=== PATIENT | female | born 1975 | race African-American/Black ===

== ENCOUNTER 2016-09-18 22:56 | Emergency (ER) | payer SELFPAY ==
[~2016-09-18] VITALS: Ht 165.1 cm; Wt 86.0 kg
[~2016-09-18 22:56] MED LIST: AUGM875T PO; BENZ100 PO; COLA100C PO; FERR324T4 PO; LACT PO; MEDR4PAK3 PO
[2016-09-18 23:00] VITALS: BP_SYST 192; BP_SYST 205; BP_DIAS 113; BP_DIAS 115; PULSE 102; RESP 16; TEMP 98.8; O2SAT 100
[2016-09-18 23:29] LABS: MEAN CORPUSCULAR HGB CONC 27.8 % (32.0-36.0)
[2016-09-18] MEDS ORDERED: SODIUM CHLORIDE 0.9% FLUSH 10 ML FLUSH IV FLUSH PRN (23:30)
[2016-09-18] MEDS ORDERED: ONDANSETRON HCL 4 MG/2 ML VIAL IVP ONE (23:30)
[2016-09-18] MEDS: SODIUM CHLOR 0.9% 1000 ML INJ 1,000 ML IV SCH (23:35)
[2016-09-19 00:11] LABS: AUTOMATED NEUTROPHIL # 5.3 TH/MM3 (1.8-7.7); BACTERIA, URINE OCC /hpf; BASOPHIL % 0.4 % (0.0-2.0); BLOOD, URINE NEG (NEG); EOSINOPHIL # 0.1 TH/MM3 (0-0.4); EOSINOPHIL % 0.9 % (0.0-4.0); GLUCOSE,URINE NEG (NEG); HEMATOCRIT 25.8 % (35.0-46.0); HEMO FLAGS DIFF FINAL; KETONE, URINE NEG (NEG); LYMPH % 23.6 % (9.0-44.0); LYMPHOCYTE # 1.9 TH/MM3 (1.0-4.8); MEAN CORPUSCULAR HEMOGLOBIN 16.1 PG (27.0-34.0); MONO % 8.4 % (0.0-8.0); MUCUS URINE FEW /lpf (OCC); NEUT % 66.7 % (16.0-70.0); NITRITE,URINE NEG (NEG); PLATELET COUNT 198 TH/MM3 (150-450); RED BLOOD COUNT 4.45 MIL/MM3 (4.00-5.30); RED CELL DISTRIBUTION WIDTH 20.8 % (11.6-17.2); SQUAMOUS EPITHELIAL CELL URINE 5 /hpf (0-5); URINE COLOR YELLOW (YELLW/STRAW); WHITE BLOOD COUNT 7.9 TH/MM3 (4.0-11.0)
[2016-09-19 00:12] LABS: COMMENT (UR) CULT NOT INDICATED; CULTURE IF INDICATED CULT NOT INDICATED
[2016-09-19 00:22] LABS: APTT (PATIENT) 25.8 SEC (24.3-30.1); PROTHROMBIN TIME - PATIENT 10.7 SEC (9.8-11.6)
[2016-09-19 00:38] LABS: ALT (GPT) 19 U/L (10-53); ANION GAP 9 MEQ/L (5-15); AST (GOT) 28 U/L (15-37); BICARBONATE 20.8 MEQ/L (21.0-32.0); BLOOD UREA NITROGEN 11 MG/DL (7-18); CHLORIDE 110 MEQ/L (98-107); GLOMERULAR FILTRATION RATE 96 ML/MIN (>89); POTASSIUM 3.5 MEQ/L (3.5-5.1); SODIUM (NA) 140 MEQ/L (136-145)
[2016-09-19 00:41] LABS: ALKALINE PHOSPHATASE 70 U/L (45-117); BETA HCG QUANT LESS THAN 1 MIU/ML (0-5); TOTAL BILIRUBIN ADULT 0.5 MG/DL (0.2-1.0)
[2016-09-19] MEDS ORDERED: IOHEXOL 350 MG/ML 10 ML VIAL (for RAD DIAG) IV ONE (00:56)
[2016-09-19] MEDS ORDERED: KETOROLAC TROMETHAMINE 30 MG/ML (IVP) VIAL IV PUSH ONE (01:15)
[2016-09-19] MEDS: SODIUM CHLOR 0.9% 1000 ML INJ 1,000 ML IV SCH (01:17)
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
--- NOTE | 2016-09-19 01:17 | RADRPT ---
EXAM DATE/TIME: 09/19/2016 00:54 [facility] COMPARISON: CT ABDOMEN & PELVIS W/O CONTRAST, November 19, 2010, 17:28. INDICATIONS : Mid-lower abdominal pain with vomiting. IV CONTRAST: 80 cc Omnipaque 350 (iohexol) IV ORAL CONTRAST: No oral contrast ingested. RADIATION DOSE: 12.75 CTDIvol (mGy) MEDICAL HISTORY : Hypertension. Ovarian cysts. SURGICAL HISTORY : section. ENCOUNTER: Initial ACUITY: 1 day PAIN SCALE: 5/10 LOCATION: lower quadrant TECHNIQUE: Volumetric scanning of the abdomen and pelvis was performed. Using automated exposure control and ad justment of the mA and/or kV according to patient size, radiation dose was kept as low as reasonably achievable to obtain optimal diagnostic quality images. DICOM format image data is available electro nically for review and comparison. FINDINGS: LOWER LUNGS: The visualized lower lungs are clear. LIVER: Homogeneous density without lesion. There is no dilation of the biliary tree. No calcified gallston es. SPLEEN: Normal size without lesion. PANCREAS: Within normal limits. KIDNEYS: Normal in size and shape. There is no mass, stone or hydronephrosis on the left. Complex fatty lesio n lower pole right kidney measures 4.2 x 3.8 cm and has increased in size from previous study. ADRENAL GLANDS: Within normal limits. VASCULAR: There is no aortic aneurysm. BOWEL/MESENTERY: The stomach, small bowel, and colon demonstrate no acute abnormality. There is no free intraperitone al air or fluid. ABDOMINAL WALL: Within normal limits. RETROPERITONEUM: There is no lymphadenopathy. BLADDER: Borderline wall thickening without mass. REPRODUCTIVE: Calcified leiomyoma in the fundus. Endometrium appears somewhat prominent likely related to phase of menstrual cycle. INGUINAL: There is no lymphadenopathy or hernia. MUSCULOSKELETAL: Within normal limits for patient age. CONCLUSION: 1. Complex fatty lesion lower pole right kidney measures 4.2 x 2.8 cm which was seen on previous stud y and has increased in size. 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 2. Calcified leiomyoma in the uterus and prominence of the endometrium, likely normal phase of menstr ual cycle. 3. Borderline wall thickening within the urinary bladder. Oscar Lindsay MD on September 19, 2016 at 1:11 Board Certified Radiologist. This report was verified electronically.
[2016-09-19] MEDS ORDERED: FERR324T8 PO (01:59)
[2016-09-19 04:20] LABS: CHLAMYDIA PCR NOT DETECTED (NOT DETECT); NEISSERIA PCR NOT DETECTED (NOT DETECT)
== END 2016-09-19 02:48 | disposition home or self-care (01) ==
LOC: NEPE 22:56
DX: D64.9 Anemia, unspecified (principal); D25.9 Leiomyoma of uterus, unspecified; I10 Essential (primary) hypertension
CPT/HCPCS: 74177; 80053; 81001; 83690; 84702; 85025; 85610; 85730; 87210; 87491; 87591; 96374; 96375; 99285; J1885; J2405; J7030; Q9967

== ENCOUNTER 2017-01-22 10:24 | Emergency (ER) | payer SELFPAY ==
[~2017-01-22] VITALS: Ht 165.1 cm; Wt 85.0 kg
[~2017-01-22 10:24] MED LIST changes: -AUGM875T PO; -BENZ100 PO; -COLA100C PO; -FERR324T4 PO; +FERR324T8 PO; -LACT PO; -MEDR4PAK3 PO
[2017-01-22 10:26] VITALS: BP 190/105; PULSE 89; RESP 14; TEMP 98.1; O2SAT 100
[2017-01-22] MEDS ORDERED: CLIN300C5 PO (11:58)
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
== END 2017-01-22 17:13 | disposition home or self-care (01) ==
LOC: NEPD 10:24
DX: K08.89 Other specified disorders of teeth and supporting structures (principal); K02.9 Dental caries, unspecified; F17.210 Nicotine dependence, cigarettes, uncomplicated
CPT/HCPCS: 99283

== ENCOUNTER 2017-02-01 22:44 | Emergency (ER) | payer SELFPAY ==
[~2017-02-01 22:44] MED LIST changes: +CLIN300C5 PO; -FERR324T8 PO
[2017-02-01 22:46] VITALS: BP 222/109; PULSE 94; RESP 16; TEMP 98.7; O2SAT 98
[2017-02-01 23:04] VITALS: BP 191/115; PULSE 86; RESP 18; O2SAT 98
[2017-02-01] MEDS ORDERED: LIDOCAINE HCL 1% 50 ML VIAL INFIL ONE (23:15)
[2017-02-01] MEDS ORDERED: SODIUM CHLORIDE 0.9% FLUSH 10 ML FLUSH IV FLUSH PRN (23:15)
[2017-02-01] MEDS ORDERED: KETOROLAC TROMETHAMINE 30 MG/ML (IVP) VIAL IV PUSH ONE (23:15)
[2017-02-01] MEDS ORDERED: METOCLOPRAMIDE HCL 10 MG/2 ML VIAL IV PUSH ONE (23:15)
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
[2017-02-01 23:32] VITALS: BP 175/99; PULSE 89; RESP 18; O2SAT 99
[2017-02-01 23:50] LABS: BICARBONATE 23.7 MEQ/L (21.0-32.0); POTASSIUM 3.8 MEQ/L (3.5-5.1)
[2017-02-02] VITALS: BP 161/85; PULSE 73; RESP 18; O2SAT 99
[2017-02-02 00:13] LABS: AUTOMATED NEUTROPHIL # 3.6 TH/MM3 (1.8-7.7); BASOPHIL % 0.4 % (0.0-2.0); EOSINOPHIL # 0.1 TH/MM3 (0-0.4); EOSINOPHIL % 1.6 % (0.0-4.0); HEMATOCRIT 27.6 % (35.0-46.0); HEMO FLAGS DIFF FINAL; LYMPH % 27.8 % (9.0-44.0); LYMPHOCYTE # 1.6 TH/MM3 (1.0-4.8); MEAN CELL VOLUME 58.3 FL (80.0-100.0); MEAN CORPUSCULAR HEMOGLOBIN 17.3 PG (27.0-34.0); MONO % 6.4 % (0.0-8.0); NEUT % 63.8 % (16.0-70.0); PLATELET COUNT 178 TH/MM3 (150-450); RED BLOOD COUNT 4.73 MIL/MM3 (4.00-5.30); RED CELL DISTRIBUTION WIDTH 21.8 % (11.6-17.2); WHITE BLOOD COUNT 5.7 TH/MM3 (4.0-11.0)
[2017-02-02 00:15] LABS: MEAN CORPUSCULAR HGB CONC 29.6 % (32.0-36.0)
[2017-02-02] MEDS ORDERED: PENI500T PO (00:25)
[2017-02-02] MEDS ORDERED: PENICILLIN V POTASSIUM 500 MG TAB PO ONE (00:30)
== END 2017-02-02 00:28 | disposition home or self-care (01) ==
LOC: NEPE 22:44
DX: K08.89 Other specified disorders of teeth and supporting structures (principal); D64.9 Anemia, unspecified; I10 Essential (primary) hypertension; E04.9 Nontoxic goiter, unspecified; Z72.0 Tobacco use
CPT/HCPCS: 64400; 80048; 85025; 96374; 96375; 99284; J1885; J2765

== ENCOUNTER 2017-05-21 09:21 | Emergency (ER) | payer MEDICAID ==
[~2017-05-21] VITALS: Ht 165.1 cm; Wt 83.0 kg
[~2017-05-21 09:21] MED LIST changes: -CLIN300C5 PO; +PENI500T PO
[2017-05-21 09:40] VITALS: BP 180/85; PULSE 83; RESP 16; TEMP 97.9; O2SAT 100
[2017-05-21] MEDS ORDERED: ACYCLOVIR 200 MG CAP PO STA (10:56)
[2017-05-21] MEDS ORDERED: predniSONE 20 MG TAB PO ONE (11:00)
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
[2017-05-21] MEDS ORDERED: ACYC400T PO (11:39)
[2017-05-21] MEDS ORDERED: ARTIDRO LEFT EYE (11:39)
[2017-05-21] MEDS ORDERED: PRED20 PO (11:39)
== END 2017-05-21 12:02 | disposition home or self-care (01) ==
LOC: NEPC 09:21
DX: G51.0 Bell's palsy (principal); I10 Essential (primary) hypertension; Z72.0 Tobacco use
CPT/HCPCS: 99283; J7512

== ENCOUNTER 2017-12-20 16:03 | Inpatient (IN) ==
--- NOTE | 2017-12-20 16:50 | ED ---
HPI General Chief complaint: Chest Pain Stated complaint: chest pain/sob Time Seen by Provider: 12/20/17 16:41 Source: patient Mode of arrival: ambulatory Limitations: no limitations History of Present Illness HPI narrative: 42-year-old female with no significant medical history presents emergency department for evaluation of an epigastric chest pain persisting times the last 3 days. Patient states it is worse with activity. She has been mildly nauseous and short of breath. Patient states she feels very tired. Patient denies chance of . States her last menstrual cycle just ended. She denies any vaginal bleeding or discharge. She does report 1 dark stool about 3 days ago. She is not on any anticoagulation however she does take about 3 ibuprofen the day when she is on her menstrual cycle. She has no other symptoms to report at this time. Related Data Home Medications Medication Instructions Recorded Confirmed No Known Home Medications 12/20/17 12/20/17 Allergies Allergy/AdvReac Type Severity Reaction Status Date / Time No Known Allergies Allergy Verified 12/20/17 16:33 Review of Systems ROS: all other systems reviewed are negative PMFSH History History Provided By: Patient Medical History Medical History Fibroid uterus (Acute) Hypertension (Acute) Pre-eclampsia affecting childbirth (Acute) Severe anemia (Acute) Transfusion history (Acute) Surgical History Surgical History History of section (Acute) Social History Social History Substance History: No History of Abuse Second Hand Smoke Exposure: Yes Smoking Status: Current every day smoker Tobacco Type: Cigarettes How Often Do You Have a Drink Containing Alcohol: 2 to 4 times a month Recent Travel in [facility] within the Last 8 Weeks: No Recent Out of Country Travel within the Last 8 Weeks: No Exam Narrative Exam Narrative: GENERAL: Well-nourished female patient, ambulatory and in no acute distress SKIN: Focused skin assessment warm/dry. HEAD: Atraumatic. Normocephalic. EYES: Pupils equal and round. No scleral icterus. No injection or drainage. ENT: No nasal bleeding or discharge. Mucous membranes pink and moist. NECK: Trachea midline. No JVD. CARDIOVASCULAR: Regular rate and rhythm. No murmur appreciated. RESPIRATORY: No accessory muscle use. Clear to auscultation. Breath sounds equal bilaterally. GASTROINTESTINAL: Abdomen soft, nondistended. Epigastric and left upper quadrant tenderness to palpation. No guarding. No rebound tenderness. Hepatic and splenic margins not palpable. RECTAL EXAM: Large external hemorrhoids, tender, stool is brown. MUSCULOSKELETAL: No obvious deformities. No clubbing. No cyanosis. No edema. NEUROLOGICAL: Awake and alert. No obvious cranial nerve deficits. Motor grossly within normal limits. Normal speech. PSYCHIATRIC: Appropriate mood and affect; insight and judgment normal. Procedures Hemaprompt Stool Procedural Steps Taken: specimen placed in appropriate test area Hemaprompt Stool Result: positive Course Initial Documented Vital Signs Temperature 98.5 F 12/20/17 16:20 Pulse Rate 87 12/20/17 16:20 Respiratory Rate 16 12/20/17 16:20 Blood Pressure 188/107 H 12/20/17 16:20 Pulse Oximetry 100 12/20/17 16:20 Last Documented Vital Signs Temperature 98.1 F 12/21/17 03:48 Pulse Rate 72 12/21/17 04:00 Respiratory Rate 18 12/21/17 03:48 Blood Pressure 159/86 H 12/21/17 03:48 Pulse Oximetry 99 12/21/17 03:48 Medical Decision Making BHAVESH Attestation BHAVESH supervised visit: Yes Attestation: I, Dr. Mckeon, have reviewed the advance practice practitioner' s documentation and am in agreement, met with the patient face to face, made the diagnosis, and the medical decision making was done by me. *My assessment and Findings: Superior pubic tenderness to palpation, elevated BP. MDM Narrative Medical decision making narrative: 42-year-old female presents emergency department for evaluation. Patient appears well. She is hypertensive here in the emergency department. She does have some epigastric and left upper quadrant tenderness to palpation. Lab work is complete and hemoglobin is 6.9. Hemoccult for stool is positive. 2 units of packed red blood cells are ordered. I discussed the patient my attending physician. She will be admitted following CT imaging of her abdomen and pelvis to further evaluate the abdominal pain. Plan is discussed with the patient. She is in agreement with this plan of care.. Medical Screen Exam Complete: Yes Emergency Medical Condition: Yes Differential Diagnosis Differential Diagnosis: Gastritis versus GI bleed upper versus lower versus electrolyte abnormality versus ACS versus cholecystitis versus pancreatitis Medical Records Medical records reviewed: Yes I reviewed the patient's medical records. Lab Data Lab results reviewed: Yes I reviewed the patient's lab results. Result diagrams: 12/21/17 04:23 12/21/17 04:23 POC Results POC Urine Results Negative Lab Results 12/20/17 12/20/17 12/20/17 Range/Units 17:00 17:00 17:00 WBC 4.8 (4.0-11.0) th/mm3 RBC 4.30 (4.00-5.30) mil/mm3 Hgb 6.9 L* (11.6-15.3) gm/dL Hct 24.6 L (35.0-46.0) % MCV 57.2 L (80.0-100.0) fL MCH 15.9 L (27.0-34.0) pg MCHC 27.9 L (32.0-36.0) % RDW 21.3 H (11.6-17.2) % Plt Count 237 (150-450) th/mm3 MPV 8.5 (7.0-11.0) fL Prelim Diff (Auto) Slide review pending Neut % (Auto) 56.8 (16.0-70.0) % Lymph % (Auto) 32.3 (9.0-44.0) % Wilson % (Auto) 8.1 H (0.0-8.0) % Eos % (Auto) 2.3 (0.0-4.0) % Baso % (Auto) 0.5 (0.0-2.0) % Neut # (Auto) 2.7 (1.8-7.7) th/mm3 Lymph # (Auto) 1.6 (1.0-4.8) th/mm3 Wilson # (Auto) 0.4 (0.0-0.9) th/mm3 Eos # (Auto) 0.1 (0.0-0.4) th/mm3 Baso # (Auto) 0.0 (0.0-0.2) th/mm3 WBC Differential . Diff Scan Auto diff confirmed Differential Comment . Platelet Estimate Normal (Normal) Platelet Morphology Normal (Normal) Tear Drop Cells 1+ H (None) Ovalocytes 3+ H (None) PT 9.9 (9.8-11.6) sec INR 1.0 Ratio APTT 23.8 L (24.3-30.1) sec Sodium 141 (136-145) meq/L Potassium 3.8 (3.5-5.1) meq/L Chloride 112 H (98-107) meq/L Carbon Dioxide 21.0 (21.0-32.0) meq/L Anion Gap 8 (5-15) meq/L BUN 9 (7-18) mg/dL Creatinine 0.87 (0.50-1.00) mg/dL Estimated GFR 86 L (>89) mL/min Random Glucose 87 (74-106) mg/dL Calcium 8.7 (8.5-10.1) mg/dL Iron (50-170) mcg/dL TIBC (250-450) mcg/dL % Saturation (20-50) % Ferritin (8-252) ng/mL Total Bilirubin 0.4 (0.2-1.0) mg/dL AST 19 (15-37) U/L ALT 16 (10-53) U/L Alkaline Phosphatase 94 (45-117) U/L Total Creatine Kinase 90 (26-192) U/L Troponin I 0.02 (0.02-0.05) ng/mL Total Protein 8.1 (6.4-8.2) g/dL Albumin 3.6 (3.4-5.0) g/dL Lipase 169 (73-393) U/L Urine Color (Yellw/Straw) Urine Clarity (Clear) Urine pH (5.0-8.5) Ur Specific [place] (1.002-1.035) Urine Protein (Neg-Trace) mg/dL Urine Glucose (UA) (Negative) mg/dL Urine Ketones (Negative) mg/dL Urine Occult Blood (Negative) Urine Nitrate (Negative) Urine Bilirubin (Negative) Urine Urobilinogen (Less than 2) mg/dL Ur Leukocyte Esterase (Negative) Urine RBC (0-3) /hpf Urine WBC (0-5) /hpf Ur Squamous Epith Cells (0-5) /hpf Urine Bacteria (None) /hpf Micro UA Comment Ur Microscopic Review Urine Culture Comments Blood Type Antibody Screen MTS Gel Crossmatch 12/20/17 12/20/17 12/20/17 Range/Units 17:00 17:00 17:00 WBC (4.0-11.0) th/mm3 RBC (4.00-5.30) mil/mm3 Hgb (11.6-15.3) gm/dL Hct (35.0-46.0) % MCV (80.0-100.0) fL MCH (27.0-34.0) pg MCHC (32.0-36.0) % RDW (11.6-17.2) % Plt Count (150-450) th/mm3 MPV (7.0-11.0) fL Prelim Diff (Auto) Neut % (Auto) (16.0-70.0) % Lymph % (Auto) (9.0-44.0) % Wilson % (Auto) (0.0-8.0) % Eos % (Auto) (0.0-4.0) % Baso % (Auto) (0.0-2.0) % Neut # (Auto) (1.8-7.7) th/mm3 Lymph # (Auto) (1.0-4.8) th/mm3 Wilson # (Auto) (0.0-0.9) th/mm3 Eos # (Auto) (0.0-0.4) th/mm3 Baso # (Auto) (0.0-0.2) th/mm3 WBC Differential Diff Scan Differential Comment Platelet Estimate (Normal) Platelet Morphology (Normal) Tear Drop Cells (None) Ovalocytes (None) PT (9.8-11.6) sec INR Ratio APTT (24.3-30.1) sec Sodium (136-145) meq/L Potassium (3.5-5.1) meq/L Chloride (98-107) meq/L Carbon Dioxide (21.0-32.0) meq/L Anion Gap (5-15) meq/L BUN (7-18) mg/dL Creatinine (0.50-1.00) mg/dL Estimated GFR (>89) mL/min Random Glucose (74-106) mg/dL Calcium (8.5-10.1) mg/dL Iron 16 L (50-170) mcg/dL TIBC 484 H (250-450) mcg/dL % Saturation 3.3 L (20-50) % Ferritin 2 L (8-252) ng/mL Total Bilirubin (0.2-1.0) mg/dL AST (15-37) U/L ALT (10-53) U/L Alkaline Phosphatase (45-117) U/L Total Creatine Kinase (26-192) U/L Troponin I 0.02 (0.02-0.05) ng/mL Total Protein (6.4-8.2) g/dL Albumin (3.4-5.0) g/dL Lipase (73-393) U/L Urine Color Yellow (Yellw/Straw) Urine Clarity Hazy H (Clear) Urine pH 5.0 (5.0-8.5) Ur Specific [place] 1.019 (1.002-1.035) Urine Protein Negative (Neg-Trace) mg/dL Urine Glucose (UA) Negative (Negative) mg/dL Urine Ketones Negative (Negative) mg/dL Urine Occult Blood Negative (Negative) Urine Nitrate Negative (Negative) Urine Bilirubin Negative (Negative) Urine Urobilinogen 2.0 H (Less than 2) mg/dL Ur Leukocyte Esterase Negative (Negative) Urine RBC Less than 1 (0-3) /hpf Urine WBC 7 H (0-5) /hpf Ur Squamous Epith Cells 8 (0-5) /hpf Urine Bacteria Rare H (None) /hpf Micro UA Comment Culture not ind Ur Microscopic Review Not Reportable Urine Culture Comments Culture not ind Blood Type Antibody Screen MTS Gel Crossmatch 12/20/17 12/21/17 12/21/17 Range/Units 18:05 01:10 04:23 WBC (4.0-11.0) th/mm3 RBC (4.00-5.30) mil/mm3 Hgb (11.6-15.3) gm/dL Hct (35.0-46.0) % MCV (80.0-100.0) fL MCH (27.0-34.0) pg MCHC (32.0-36.0) % RDW (11.6-17.2) % Plt Count (150-450) th/mm3 MPV (7.0-11.0) fL Prelim Diff (Auto) Neut % (Auto) (16.0-70.0) % Lymph % (Auto) (9.0-44.0) % Wilson % (Auto) (0.0-8.0) % Eos % (Auto) (0.0-4.0) % Baso % (Auto) (0.0-2.0) % Neut # (Auto) (1.8-7.7) th/mm3 Lymph # (Auto) (1.0-4.8) th/mm3 Wilson # (Auto) (0.0-0.9) th/mm3 Eos # (Auto) (0.0-0.4) th/mm3 Baso # (Auto) (0.0-0.2) th/mm3 WBC Differential Diff Scan Differential Comment Platelet Estimate (Normal) Platelet Morphology (Normal) Tear Drop Cells (None) Ovalocytes (None) PT (9.8-11.6) sec INR Ratio APTT (24.3-30.1) sec Sodium 141 (136-145) meq/L Potassium 3.6 (3.5-5.1) meq/L Chloride 111 H (98-107) meq/L Carbon Dioxide 20.5 L (21.0-32.0) meq/L Anion Gap 10 (5-15) meq/L BUN 7 (7-18) mg/dL Creatinine 0.78 (0.50-1.00) mg/dL Estimated GFR Greater than 89 (>89) mL/min Random Glucose 84 (74-106) mg/dL Calcium 8.5 (8.5-10.1) mg/dL Iron (50-170) mcg/dL TIBC (250-450) mcg/dL % Saturation (20-50) % Ferritin (8-252) ng/mL Total Bilirubin 0.7 (0.2-1.0) mg/dL AST 17 (15-37) U/L ALT 14 (10-53) U/L Alkaline Phosphatase 80 (45-117) U/L Total Creatine Kinase (26-192) U/L Troponin I 0.03 Less than 0.02 L (0.02-0.05) ng/mL Total Protein 7.6 (6.4-8.2) g/dL Albumin 3.4 (3.4-5.0) g/dL Lipase (73-393) U/L Urine Color (Yellw/Straw) Urine Clarity (Clear) Urine pH (5.0-8.5) Ur Specific [place] (1.002-1.035) Urine Protein (Neg-Trace) mg/dL Urine Glucose (UA) (Negative) mg/dL Urine Ketones (Negative) mg/dL Urine Occult Blood (Negative) Urine Nitrate (Negative) Urine Bilirubin (Negative) Urine Urobilinogen (Less than 2) mg/dL Ur Leukocyte Esterase (Negative) Urine RBC (0-3) /hpf Urine WBC (0-5) /hpf Ur Squamous Epith Cells (0-5) /hpf Urine Bacteria (None) /hpf Micro UA Comment Ur Microscopic Review Urine Culture Comments Blood Type O Positive Antibody Screen Negative MTS Gel Crossmatch See Detail 12/21/17 Range/Units 04:23 WBC 7.3 D (4.0-11.0) th/mm3 RBC 4.72 (4.00-5.30) mil/mm3 Hgb 8.6 L (11.6-15.3) gm/dL Hct 29.2 L (35.0-46.0) % MCV 61.9 L D (80.0-100.0) fL MCH 18.1 L (27.0-34.0) pg MCHC 29.3 L (32.0-36.0) % RDW 24.9 H D (11.6-17.2) % Plt Count 207 (150-450) th/mm3 MPV 9.0 (7.0-11.0) fL Prelim Diff (Auto) Neut % (Auto) 72.0 H (16.0-70.0) % Lymph % (Auto) 19.0 (9.0-44.0) % Wilson % (Auto) 6.7 (0.0-8.0) % Eos % (Auto) 2.0 (0.0-4.0) % Baso % (Auto) 0.3 (0.0-2.0) % Neut # (Auto) 5.2 (1.8-7.7) th/mm3 Lymph # (Auto) 1.4 (1.0-4.8) th/mm3 Wilson # (Auto) 0.5 (0.0-0.9) th/mm3 Eos # (Auto) 0.1 (0.0-0.4) th/mm3 Baso # (Auto) 0.0 (0.0-0.2) th/mm3 WBC Differential . Diff Scan Differential Comment Auto diff final Platelet Estimate (Normal) Platelet Morphology (Normal) Tear Drop Cells (None) Ovalocytes (None) PT (9.8-11.6) sec INR Ratio APTT (24.3-30.1) sec Sodium (136-145) meq/L Potassium (3.5-5.1) meq/L Chloride (98-107) meq/L Carbon Dioxide (21.0-32.0) meq/L Anion Gap (5-15) meq/L BUN (7-18) mg/dL Creatinine (0.50-1.00) mg/dL Estimated GFR (>89) mL/min Random Glucose (74-106) mg/dL Calcium (8.5-10.1) mg/dL Iron (50-170) mcg/dL TIBC (250-450) mcg/dL % Saturation (20-50) % Ferritin (8-252) ng/mL Total Bilirubin (0.2-1.0) mg/dL AST (15-37) U/L ALT (10-53) U/L Alkaline Phosphatase (45-117) U/L Total Creatine Kinase (26-192) U/L Troponin I (0.02-0.05) ng/mL Total Protein (6.4-8.2) g/dL Albumin (3.4-5.0) g/dL Lipase (73-393) U/L Urine Color (Yellw/Straw) Urine Clarity (Clear) Urine pH (5.0-8.5) Ur Specific [place] (1.002-1.035) Urine Protein (Neg-Trace) mg/dL Urine Glucose (UA) (Negative) mg/dL Urine Ketones (Negative) mg/dL Urine Occult Blood (Negative) Urine Nitrate (Negative) Urine Bilirubin (Negative) Urine Urobilinogen (Less than 2) mg/dL Ur Leukocyte Esterase (Negative) Urine RBC (0-3) /hpf Urine WBC (0-5) /hpf Ur Squamous Epith Cells (0-5) /hpf Urine Bacteria (None) /hpf Micro UA Comment Ur Microscopic Review Urine Culture Comments Blood Type Antibody Screen MTS Gel Crossmatch Imaging Data Radiologist's impression: Chest X-Ray 12/20/17 16:48 CONCLUSION: No acute cardiopulmonary disease. Abdomen/Pelvis CT 12/20/17 16:49 CONCLUSION: 1. No obstruction or acute inflammatory changes are demonstrated. 2. Multiple cysts of the left ovary measuring up to 3.8 cm in size. Similar findings were seen on the prior studies. Low-grade cystic neoplasm would be in the differential. 3. Uterine fibroids are again noted. 4. 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 Discharge Plan Discharge Disposition Patient Disposition: 30 Still Patient Discharge Condition Condition: Stable Discharge Details Diagnosis: Atypical chest pain, Symptomatic anemia, Stool guaiac positive Physicians Team ED Provider: Mariusz Mckeon ED Midlevel Provider: Sharita Ingram Primary Care Provider: Primary Care Mecca,Hilda Attending Provider: Nkechi Marks Other Providers: Selwyn Barnes Status ED Status: Left Department Discharge Information Discharge Date/Time: 12/20/17 23:52
--- NOTE | 2017-12-20 17:11 | XR ---
EXAM DATE: 12/20/2017 4:48 PM EDT AGE/SEX: 42 years / Female INDICATIONS: Chest pain. Difficulty catching breath. CLINICAL DATA: This is the patient's initial encounter. Patient reports that signs and symptoms have been present for 3 days and indicates a pain score of 5/10. MEDICAL/SURGICAL HISTORY: Hypertension. None. COMPARISON: No prior exams available for comparison. FINDINGS: A single AP view of the chest demonstrates the lungs to be symmetrically aerated without evidence of mass, infiltrate or effusion. The cardiomediastinal contours are unremarkable. Osseous structures a re intact. CONCLUSION: No acute cardiopulmonary disease. Electronically signed by: Oscar Lindsay MD 12/20/2017 5:10 PM EDT
[2017-12-20 17:30] LABS: Baso % (Auto) 0.5 % (0.0-2.0); Eos # (Auto) 0.1 th/mm3 (0.0-0.4); Eos % (Auto) 2.3 % (0.0-4.0); Hematocrit 24.6 % (35.0-46.0); Lymph # (Auto) 1.6 th/mm3 (1.0-4.8); Lymph % (Auto) 32.3 % (9.0-44.0); Mean Corpuscular Hemoglobin 15.9 pg (27.0-34.0); Mean Corpuscular Volume 57.2 fL (80.0-100.0); Mean Platelet Volume 8.5 fL (7.0-11.0); Mono # (Auto) 0.4 th/mm3 (0.0-0.9); Mono % (Auto) 8.1 % (0.0-8.0); Neut # (Auto) 2.7 th/mm3 (1.8-7.7); Neut % (Auto) 56.8 % (16.0-70.0); Platelet Count 237 th/mm3 (150-450); Red Cell Distribution Width 21.3 % (11.6-17.2); White Blood Count 4.8 th/mm3 (4.0-11.0)
[2017-12-20 17:36] LABS: Bacteria,Urine Rare /hpf; Bilirubin,Urine Negative (Negative); Clarity,Urine Hazy (Clear); Color,Urine Yellow (Yellw/Straw); Glucose,Urine (UA) Negative (Negative); Leukocyte Esterase,Urine Negative (Negative); Nitrite,Urine Negative (Negative); Specific Gravity,Urine 1.019 (1.002-1.035); Squamous Epithelial Cell,Urine 8 /hpf (0-5)
[2017-12-20 17:37] LABS: Activated Partial Thrombo Time 23.8 sec (24.3-30.1); Prothrombin Time 9.9 sec (9.8-11.6)
[2017-12-20 17:40] LABS: Mean Corpuscular HGB Conc 27.9 % (32.0-36.0)
[2017-12-20 17:42] LABS: Hemoglobin 6.9 gm/dL (11.6-15.3)
[2017-12-20 17:48] LABS: Albumin 3.6 g/dL (3.4-5.0); Anion Gap 8 meq/L (5-15); Aspartate Aminotransferase 19 U/L (15-37); Blood Urea Nitrogen 9 mg/dL (7-18); Calcium 8.7 mg/dL (8.5-10.1); Chloride 112 meq/L (98-107); Glomerular Filtration Rate 86 mL/min (>89); Glucose,Random 87 mg/dL (74-106); Lipase 169 U/L (73-393); Potassium 3.8 meq/L (3.5-5.1); Sodium 141 meq/L (136-145)
[2017-12-20 17:49] LABS: Alanine Aminotransferase 16 U/L (10-53)
[2017-12-20 17:53] LABS: Alkaline Phosphatase 94 U/L (45-117); Total Protein 8.1 g/dL (6.4-8.2); Troponin I 0.02 ng/mL (0.02-0.05)
[2017-12-20 17:56] LABS: Creatine Kinase 90 U/L (26-192)
[2017-12-20] MEDS ORDERED: Sodium Chlor 0.9% Inj 250 ML IV.SIG SCH (18:00)
[2017-12-20 18:08] LABS: Ovalocytes 3+; Platelet Estimate Normal (Normal); Platelet Morphology Normal (Normal); Tear Drop Cells 1+
--- NOTE | 2017-12-20 19:41 | CT ---
EXAM DATE: 12/20/2017 5:56 PM EDT AGE/SEX: 42 years / Female INDICATIONS: Abdomen pain with nausea and vomiting. CLINICAL DATA: This is the patient's initial encounter. Patient reports that signs and symptoms have been present for 1 day and indicates a pain score of 6/10. MEDICAL/SURGICAL HISTORY: Hypertension. section. ORAL CONTRAST: No oral contrast ingested. RADIATION DOSE: 15.82 CTDI (mGy) COMPARISON: [facility] [place] ABDOMEN & PELVIS W CONTRAST, 09/19/2016. . TECHNIQUE: Multiple contiguous axial images were obtained through the abdomen and pelvis following b olus infusion of 95 ml Omnipaque 350 (iohexol) nonionic water-soluble contrast as a single exam dos e. No oral contrast ingested. Using automated exposure control and adjustment of the mA and/or kV ac cording to patient size, radiation dose was kept as low as reasonably achievable to obtain optimal di agnostic quality images. DICOM format image data is available electronically for review and comparis on. FINDINGS: Normal size liver. A few scattered subcentimeter hepatic hypodensities are stable. Spleen, pancreas a nd adrenal glands are normal. Right lower pole renal angiomyolipoma is 4.7 cm, previously about 4.3 cm. No acute renal abnormality is demonstrated. Uterine fibroids are again noted. There are several cysts of the left ovary that measure up to 3.8 cm , similar to before. No associated inflammatory changes. No free fluid in the pelvic cul-de-sac. Visualized lung bases are clear. No acute bony abnormality demonstrated. L5 is partially sacralized o n the left. CONCLUSION: 1. No obstruction or acute inflammatory changes are demonstrated. 2. Multiple cysts of the left ovary measuring up to 3.8 cm in size. Similar findings were seen on prior studies. Low-grade cystic neoplasm would be in the differential. 3. Uterine fibroids are again noted. 4. 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 Electronically signed by: Marquis Chavira MD 12/20/2017 7:39 PM EDT
--- NOTE | 2017-12-20 20:39 | P.HPFP ---
History of Present Illness Primary Care Physician: No Primary Care Physician <SelinaNkechi 12/21/17 13:16> No Primary Care Physician <Alethea Mosley 12/20/17 20:39> Chief Complaint: chest pain <Alethea Mosley 12/20/17 21:20> History of Present Illness: 42 yr old female with PMH of fibroids, heavy periods , pre-eclampsia during 4 years ago, and a hx of low Hb (6.8) requiring 2 U pRBC in 2014, presenting to the ED with a 4 day history of excessive fatigue,. sleepiness, and a two day history of chest pain. Her pain in located in the middle of the chest, feels like pressure, walking and moving makes it worse, feels she can't breath, does not radiate to the jaws or arm, associated with severe shortness of breath. Resting makes it better. Not sweating. The episodes only come with exertion, however the fatigue has been constant. Today, she also started having abdominal pain and feels bloated. Her pain is located in her lower abdomen, feels like cramping but she stopped her period a few days ago. She denies the possibility of , not sexually active. She reports nausea but not vomiting, she also reports an episode of dark stools a few days ago, that self resolved. Denies diarrhea or constipation. No fevers or chills. Medications: none Allergies: none Social Hx: lives with and child who is 4 yrs old, born at 26 weeks. Works at a time [employer] facility. Smokes 1/2 pack a day, drinks 4 beers a week, denies recreational or prescription drug use. Family Hx: HTN, diabetes in both sides of family and grandparent with throat and lung cancer. Surgical Hx: emergency CS 4 yrs ago <Alethea Mosley 12/20/17 23:49> - Diagnosis (1) GI bleed (2) Stool guaiac positive (3) Symptomatic anemia (4) Atypical chest pain (5) Nutrition, metabolism, and development symptoms (6) DVT prophylaxis <Nkechi Marks 12/21/17 13:16> (1) GI bleed (2) Stool guaiac positive (3) Symptomatic anemia (4) Atypical chest pain (5) Nutrition, metabolism, and development symptoms (6) DVT prophylaxis <Alethea Mosley 12/20/17 23:43> Inpatient Certification: I certify that the inpatient services were ordered in accordance with Medicare regulations governing the order. This includes certification that hospital inpatient services are reasonable and necessary and in the case of services not specified as inpatient-only under 42 CFR 419.22(n), that they are appropriately provided as inpatient services in accordance to with the 2-midnight benchmark under 43 CFR 412.3(e) <Nkechi Marks 12/21/17 13:16> Review of Systems Constitutional: Reports daytime sleepiness, Reports fatigue, Reports headache(s) , Reports lack of energy, Reports malaise, Denies chills, Denies fever(s) < Alethea Mosley V 12/20/17 21:46> Cardiovascular: Reports chest pain, Reports chest pain with activity, Reports lightheadedness, Reports shortness of breath with activity, Denies excessive sweating, Denies generalized swelling, Denies shortness of breath when lying down <Alethea Mosley 12/20/17 21:46> Gastrointestinal: Reports abdominal pain, Reports black, tarry stools, Reports bloating, Reports cramping, Reports loose stools, Reports nausea, Denies vomiting <Alethea Mosley 12/20/17 21:46> Genitourinary: Reports heavy periods, Reports painful periods <Alethea Mosley 12/20/17 21:46> Hematologic/Lymphatic: Denies easy bleeding <Alethea Mosley V 12/20/17 21:46> Allergic/Immunologic: Denies GI upset with certain foods <Alethea Mosley V 12/20/17 21:46> PMFSH - History History Provided By: Patient <Alethea Mosley V 12/20/17 20:39> - Medical History Medical History: Medical History (Last Updated 12/20/17 @ 21:45 by Alethea Murphy MD, R1) Fibroid uterus Hypertension Pre-eclampsia affecting childbirth Severe anemia Transfusion history <Nkechi Marks 12/21/17 13:16> Medical History (Last Updated 12/20/17 @ 21:45 by Alethea Murphy MD, R1) Fibroid uterus Hypertension Pre-eclampsia affecting childbirth Severe anemia Transfusion history <Alethea Mosley V 12/20/17 21:46> - Surgical History Surgical History: Surgical History (Last Reviewed 12/20/17 @ 21:45 by Alethea Murphy MD, R1) History of section <Nkechi Marks - 12/21/17 13:16> Surgical History (Last Reviewed 12/20/17 @ 21:45 by Alethea Murphy MD, R1) History of section <Alethea Mosley V 12/20/17 21:46> - Social History I have reviewed the patient's Social History: Yes <Alethea Mosley V 07/04 21:46> - Tobacco History Second Hand Smoke Exposure: Yes <Alethea Mosley 12/20/17 20:39> Tobacco Use In Past 30 Days: Yes <Alethea Mosley V 12/20/17 20:39> Smoking Status: Current every day smoker <Alethea Mosley 12/20/17 20: 39> Tobacco Type: Cigarettes <Alethea Mosley 12/20/17 20:39> - Alcohol History How Often Do You Have a Drink Containing Alcohol: 4 or more times a week < Alethea Mosley V 12/20/17 21:46> - Substance Use History Substance History: No History of Abuse <Alethea Mosley 12/20/17 20:39 > - Travel History Recent Travel in the [facility] Within the Last 8 Weeks: No <Alethea Mosley V 12/20/17 20:39> Recent Travel Out of the Country Within the Last 8 Weeks: No <Alethea Mosley V 12/20/17 20:39> - Immunization History Tetanus Immunization: <5 Years <Alethea Mosley V 12/20/17 20:39> Hx Influenza Vaccine This Season: No <Alethea Mosley V 12/20/17 20:39> Medications and Allergies Allergies Allergy/AdvReac Type Severity Reaction Status Date / Time No Known Allergies Allergy Verified 12/20/17 16:33 <Nkechi Marks 12/21/17 13:16> Home Medications Medication Instructions Recorded Confirmed Type No Known Home Medications 12/20/17 12/20/17 History <Nkechi Marks R - 12/21/17 13:16> Active Medications: Active Medications Acetaminophen (Tylenol) 650 mg PO Q4H PRN PRN Reason: PAIN 1-10 AND/OR FEVER >101F Enalaprilat (Vasotec Inj) 1.25 mg IV.PUSH Q6H PRN PRN Reason: SEE LABEL COMMENTS Ferrous Sulfate (Ferosul) 325 mg PO DAILY [facility] Last Admin: 12/21/17 13:11 Dose: Not Given Lactated Ringer's (Lr 1000 Ml Inj) 1,000 mls @ 30 mls/hr IV.CONT .Q24H ONE Stop: 12/22/17 12:29 Sodium Chloride (Ns Inj) 500 mls @ 30 mls/hr IV.CONT .[id number] ONE Stop: 12/22/17 05:09 Magnesium Citrate (Citroma Liq) 300 ml PO ONCE ONE Stop: 12/21/17 18:31 Magnesium Citrate (Citroma Liq) 300 ml PO ONCE ONE Stop: 12/22/17 06:01 Ondansetron HCl (Zofran Inj) 4 mg IV.PUSH Q6H PRN PRN Reason: NAUSEA OR VOMITING Pantoprazole Sodium (Protonix Inj) 40 mg IV.PUSH Q12H [facility] Last Admin: 12/21/17 08:28 Dose: 40 mg Sodium Chloride (Ns Flush) 2 ml IV.FLUSH UNSCH PRN PRN Reason: FLUSH AFTER USING IV ACCESS <Nkechi Marks R - 12/21/17 13:16> Active Medications Sodium Chloride (Ns Inj) 250 mls @ 15 mls/hr IV.SIG ONCE BRITTANY Stop: 12/21/17 10:39 Last Admin: 12/20/17 20:24 Dose: 15 mls/hr Sodium Chloride (Ns Flush) 2 ml IV.FLUSH UNSCH PRN PRN Reason: FLUSH AFTER USING IV ACCESS <Alethea Mosley V - 12/20/17 20:39> Exam Vital signs: Vital Signs 12/20/17 16:20 12/20/17 16:33 12/20/17 16:48 Temperature 98.5 F Pulse Rate 87 80 80 Respiratory Rate 16 20 18 Blood Pressure 188/107 H 172/98 H Pulse Oximetry 100 98 98 12/20/17 19:49 12/20/17 20:47 12/20/17 21:00 Temperature 98.2 F 98.5 F Pulse Rate 82 75 Respiratory Rate 18 18 Blood Pressure 168/98 H 149/81 H Pulse Oximetry 99 100 98 12/20/17 21:04 12/20/17 22:00 12/20/17 22:01 Temperature 98.3 F 98.2 F 98.2 F Pulse Rate 77 82 82 Respiratory Rate 17 20 20 Blood Pressure 156/89 H 168/70 H 168/82 H Pulse Oximetry 100 98 12/20/17 23:40 12/21/17 00:00 12/21/17 00:22 Temperature 98 F 98 F Pulse Rate 74 85 Respiratory Rate 20 20 Blood Pressure 155/90 H 155/90 H Pulse Oximetry 98 100 100 12/21/17 00:38 12/21/17 02:49 12/21/17 03:48 Temperature 98.6 F 98.1 F 98.1 F Pulse Rate 66 72 72 Respiratory Rate 18 18 18 Blood Pressure 149/75 H 159/86 H 159/86 H Pulse Oximetry 100 99 99 12/21/17 04:00 12/21/17 08:00 12/21/17 12:00 Temperature 98.1 F 98.1 F Pulse Rate 72 65 73 Respiratory Rate 18 20 Blood Pressure 126/68 174/92 H Pulse Oximetry 100 100 12/21/17 12:08 12/21/17 12:19 12/21/17 12:50 Temperature 97.8 F Pulse Rate 65 63 Respiratory Rate 20 20 Blood Pressure 140/93 H 141/84 H Pulse Oximetry 99 100 99 Intake & Output 12/20/17 12/21/17 12/21/17 18:59 06:59 18:59 Intake Total 400 / 400 200 / 200 Balance 400 / 400 200 / 200 Weight 82.554 kg 84.2 kg Intake: Oral 0 / 0 Anesthesia Amount 200 / 200 Intake (Blood Product) Amt 400 / 400 Rbc As-3 Leukoreduced Unit 400 / 400 [id number] Rbc As-3 Leukoreduced Unit 0 / 0 [id number] Other: # Voids 1 Date of Last Bowel Movement 12/20/17 12/21/17 Weight On Admission 84.2 kg <LesafransiscaangélicaRomiNkechi R - 12/21/17 13:16> Vital Signs 12/20/17 16:20 12/20/17 16:33 12/20/17 16:48 Temperature 98.5 F Pulse Rate 87 80 80 Respiratory Rate 16 20 18 Blood Pressure 188/107 H 172/98 H Pulse Oximetry 100 98 98 12/20/17 19:49 Temperature 98.2 F Pulse Rate 82 Respiratory Rate 18 Blood Pressure 168/98 H Pulse Oximetry 99 Intake & Output 12/20/17 12/20/17 12/21/17 06:59 18:59 06:59 Weight 82.554 kg <Alethea Mosley V - 12/20/17 20:39> Narrative: GENERAL: Well-nourished, well-developed patient. SKIN: Warm and dry. HEAD: Normocephalic and atraumatic. EYES: No scleral icterus. No injection or drainage. ENT: No nasal drainage noted. Mucous membranes pink. Airway patent. NECK: Supple, trachea midline. No JVD. CARDIOVASCULAR: Regular rate and rhythm without murmurs, gallops, or rubs. RESPIRATORY: Breath sounds equal bilaterally. No accessory muscle use. ABDOMEN/GI: Abdomen soft, non-tender, bowel sounds present, no rebound, no guarding EXTREMITIES: No cyanosis or edema. BACK: Nontender without obvious deformity. No CVA tenderness. NEUROLOGICAL: Awake and alert. Motor and sensory grossly within normal limits. Five out of 5 muscle strength in all muscle groups. Normal speech. <Alethea Mosley V - 12/20/17 21:46> Results - Labs Result diagrams: 12/21/17 04:23 12/21/17 04:23 <SelinaRomiNkechi R - 12/21/17 13:16> Abnormal lab results 12/20/17 12/20/17 12/20/17 Range/Units 17:00 17:00 17:00 Hgb 6.9 L* (11.6-15.3) gm/dL Hct 24.6 L (35.0-46.0) % MCV 57.2 L (80.0-100.0) fL MCH 15.9 L (27.0-34.0) pg MCHC 27.9 L (32.0-36.0) % RDW 21.3 H (11.6-17.2) % Neut % (Auto) (16.0-70.0) % [place] % (Auto) 8.1 H (0.0-8.0) % Tear Drop Cells 1+ H (None) Ovalocytes 3+ H (None) APTT 23.8 L (24.3-30.1) sec Chloride 112 H (98-107) meq/L Carbon Dioxide (21.0-32.0) meq/L Estimated GFR 86 L (>89) mL/min Iron (50-170) mcg/dL TIBC (250-450) mcg/dL % Saturation (20-50) % Ferritin (8-252) ng/mL Troponin I (0.02-0.05) ng/mL Urine Clarity (Clear) Urine Urobilinogen (Less than 2) mg/dL Urine WBC (0-5) /hpf Urine Bacteria (None) /hpf MTS Gel Crossmatch 12/20/17 12/20/17 12/20/17 Range/Units 17:00 17:00 17:00 Hgb (11.6-15.3) gm/dL Hct (35.0-46.0) % MCV (80.0-100.0) fL MCH (27.0-34.0) pg MCHC (32.0-36.0) % RDW (11.6-17.2) % Neut % (Auto) (16.0-70.0) % [place] % (Auto) (0.0-8.0) % Tear Drop Cells (None) Ovalocytes (None) APTT (24.3-30.1) sec Chloride (98-107) meq/L Carbon Dioxide (21.0-32.0) meq/L Estimated GFR (>89) mL/min Iron 16 L (50-170) mcg/dL TIBC 484 H (250-450) mcg/dL % Saturation 3.3 L (20-50) % Ferritin 2 L (8-252) ng/mL Troponin I (0.02-0.05) ng/mL Urine Clarity Hazy H (Clear) Urine Urobilinogen 2.0 H (Less than 2) mg/dL Urine WBC 7 H (0-5) /hpf Urine Bacteria Rare H (None) /hpf MTS Gel Crossmatch 12/20/17 12/21/17 12/21/17 Range/Units 18:05 04:23 04:23 Hgb 8.6 L (11.6-15.3) gm/dL Hct 29.2 L (35.0-46.0) % MCV 61.9 L D (80.0-100.0) fL MCH 18.1 L (27.0-34.0) pg MCHC 29.3 L (32.0-36.0) % RDW 24.9 H D (11.6-17.2) % Neut % (Auto) 72.0 H (16.0-70.0) % [place] % (Auto) (0.0-8.0) % Tear Drop Cells (None) Ovalocytes (None) APTT (24.3-30.1) sec Chloride 111 H (98-107) meq/L Carbon Dioxide 20.5 L (21.0-32.0) meq/L Estimated GFR (>89) mL/min Iron (50-170) mcg/dL TIBC (250-450) mcg/dL % Saturation (20-50) % Ferritin (8-252) ng/mL Troponin I Less than 0.02 L (0.02-0.05) ng/mL Urine Clarity (Clear) Urine Urobilinogen (Less than 2) mg/dL Urine WBC (0-5) /hpf Urine Bacteria (None) /hpf MTS Gel Crossmatch See Detail Short CBC 12/20/17 12/21/17 Range/Units 17:00 04:23 WBC 4.8 7.3 D (4.0-11.0) th/mm3 Hgb 6.9 L* 8.6 L (11.6-15.3) gm/dL Hct 24.6 L 29.2 L (35.0-46.0) % Plt Count 237 207 (150-450) th/mm3 BMP 12/20/17 12/21/17 17:00 04:23 Sodium 141 141 Potassium 3.8 3.6 Chloride 112 H 111 H Carbon Dioxide 21.0 20.5 L BUN 9 7 Creatinine 0.87 0.78 Calcium 8.7 8.5 Cardiac Enzymes 12/20/17 12/20/17 12/21/17 Range/Units 17:00 17:00 01:10 Total Creatine Kinase 90 (26-192) U/L Troponin I 0.02 0.02 0.03 (0.02-0.05) ng/mL 12/21/17 Range/Units 04:23 Total Creatine Kinase (26-192) U/L Troponin I Less than 0.02 L (0.02-0.05) ng/mL Liver Function 12/20/17 12/21/17 Range/Units 17:00 04:23 Total Bilirubin 0.4 0.7 (0.2-1.0) mg/dL AST 19 17 (15-37) U/L ALT 16 14 (10-53) U/L Alkaline Phosphatase 94 80 (45-117) U/L Albumin 3.6 3.4 (3.4-5.0) g/dL Urine 12/20/17 Range/Units 17:00 Urine Color Yellow (Yellw/Straw) Urine Clarity Hazy H (Clear) Urine pH 5.0 (5.0-8.5) Ur Specific [place] 1.019 (1.002-1.035) Urine Protein Negative (Neg-Trace) mg/dL Urine Glucose (UA) Negative (Negative) mg/dL <Nkechi Marks - 12/21/17 13:16> Abnormal lab results 12/20/17 12/20/17 12/20/17 Range/Units 17:00 17:00 17:00 Hgb 6.9 L* (11.6-15.3) gm/dL Hct 24.6 L (35.0-46.0) % MCV 57.2 L (80.0-100.0) fL MCH 15.9 L (27.0-34.0) pg MCHC 27.9 L (32.0-36.0) % RDW 21.3 H (11.6-17.2) % [place] % (Auto) 8.1 H (0.0-8.0) % Tear Drop Cells 1+ H (None) Ovalocytes 3+ H (None) APTT 23.8 L (24.3-30.1) sec Chloride 112 H (98-107) meq/L Estimated GFR 86 L (>89) mL/min Urine Clarity (Clear) Urine Urobilinogen (Less than 2) mg/dL Urine WBC (0-5) /hpf Urine Bacteria (None) /hpf MTS Gel Crossmatch 12/20/17 12/20/17 Range/Units 17:00 18:05 Hgb (11.6-15.3) gm/dL Hct (35.0-46.0) % MCV (80.0-100.0) fL MCH (27.0-34.0) pg MCHC (32.0-36.0) % RDW (11.6-17.2) % [place] % (Auto) (0.0-8.0) % Tear Drop Cells (None) Ovalocytes (None) APTT (24.3-30.1) sec Chloride (98-107) meq/L Estimated GFR (>89) mL/min Urine Clarity Hazy H (Clear) Urine Urobilinogen 2.0 H (Less than 2) mg/dL Urine WBC 7 H (0-5) /hpf Urine Bacteria Rare H (None) /hpf MTS Gel Crossmatch See Detail Short CBC 12/20/17 Range/Units 17:00 WBC 4.8 (4.0-11.0) th/mm3 Hgb 6.9 L* (11.6-15.3) gm/dL Hct 24.6 L (35.0-46.0) % Plt Count 237 (150-450) th/mm3 BMP 12/20/17 17:00 Sodium 141 Potassium 3.8 Chloride 112 H Carbon Dioxide 21.0 BUN 9 Creatinine 0.87 Calcium 8.7 Cardiac Enzymes 12/20/17 Range/Units 17:00 Total Creatine Kinase 90 (26-192) U/L Troponin I 0.02 (0.02-0.05) ng/mL Liver Function 12/20/17 Range/Units 17:00 Total Bilirubin 0.4 (0.2-1.0) mg/dL AST 19 (15-37) U/L ALT 16 (10-53) U/L Alkaline Phosphatase 94 (45-117) U/L Albumin 3.6 (3.4-5.0) g/dL Urine 12/20/17 Range/Units 17:00 Urine Color Yellow (Yellw/Straw) Urine Clarity Hazy H (Clear) Urine pH 5.0 (5.0-8.5) Ur Specific [place] 1.019 (1.002-1.035) Urine Protein Negative (Neg-Trace) mg/dL Urine Glucose (UA) Negative (Negative) mg/dL <Alethea Mosley V - 12/20/17 20:39> - Imaging Impressions Chest X-Ray 12/20/17 16:48 CONCLUSION: No acute cardiopulmonary disease. Abdomen/Pelvis CT 12/20/17 16:49 CONCLUSION: 1. No obstruction or acute inflammatory changes are demonstrated. 2. Multiple cysts of the left ovary measuring up to 3.8 cm in size. Similar findings were seen on the prior studies. Low-grade cystic neoplasm would be in the differential. 3. Uterine fibroids are again noted. 4. 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 <Nkechi Marks R - 12/21/17 13:16> Impressions Chest X-Ray 12/20/17 16:48 CONCLUSION: No acute cardiopulmonary disease. Abdomen/Pelvis CT 12/20/17 16:49 CONCLUSION: 1. No obstruction or acute inflammatory changes are demonstrated. 2. Multiple cysts of the left ovary measuring up to 3.8 cm in size. Similar findings were seen on the prior studies. Low-grade cystic neoplasm would be in the differential. 3. Uterine fibroids are again noted. 4. 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 <Alethea Mosley V - 12/20/17 20:39> Caprini VTE Risk Assessment Caprini VTE Risk Assessment: No/Low Risk (score <= 1) <Alethea Mosley V 12/20/17 23:49> VTE Pharmacological Exception Reason: Active bleeding <Alethea Mosley V 12/20/17 23:49> Caprini Risk Assessment Model: Point Value = 1 Point Value = 2 Point Value = 3 Point Value = 5 Age 41-60 Minor surgery BMI > 25 kg/m2 Swollen legs Varicose veins or History of unexplained or recurrent spontaneous Oral contraceptives or hormone replacement Sepsis (< 1 month) Serious lung disease, including pneumonia (< 1 month) Abnormal pulmonary function Acute myocardial infarction Congestive heart failure (< 1 month) History of inflammatory bowel disease Medical patient at bed rest Age 61-74 Arthroscopic surgery Major open surgery (> 45 min) Laparoscopic surgery (> 45 min) Malignancy Confined to bed (> 72 hours) Immobilizing plaster cast Central venous access Age >= 75 History of VTE Family history of VTE Factor V Leiden Prothrombin [id number] Lupus anticoagulant Anticardiolipin antibodies Elevated serum homocysteine Heparin-induced thrombocytopenia Other congenital or acquired thrombophilia Stroke (< 1 month) Elective arthroplasty Hip, pelvis, or leg fracture Acute spinal cord injury (< 1 month) <Nkechi Marks R - 12/21/17 13:16> Point Value = 1 Point Value = 2 Point Value = 3 Point Value = 5 Age 41-60 Minor surgery BMI > 25 kg/m2 Swollen legs Varicose veins or History of unexplained or recurrent spontaneous Oral contraceptives or hormone replacement Sepsis (< 1 month) Serious lung disease, including pneumonia (< 1 month) Abnormal pulmonary function Acute myocardial infarction Congestive heart failure (< 1 month) History of inflammatory bowel disease Medical patient at bed rest Age 61-74 Arthroscopic surgery Major open surgery (> 45 min) Laparoscopic surgery (> 45 min) Malignancy Confined to bed (> 72 hours) Immobilizing plaster cast Central venous access Age >= 75 History of VTE Family history of VTE Factor V Leiden Prothrombin [id number] Lupus anticoagulant Anticardiolipin antibodies Elevated serum homocysteine Heparin-induced thrombocytopenia Other congenital or acquired thrombophilia Stroke (< 1 month) Elective arthroplasty Hip, pelvis, or leg fracture Acute spinal cord injury (< 1 month) <Alethea Mosley V - 12/20/17 20:39> Prophylaxis Regimen: Total Risk Factor Score Risk Level Prophylaxis Regimen 0-1 Low Early ambulation 2 Moderate Order ONE of the following: *Sequential Compression Device (SCD) *Heparin 5000 units SQ BID 3-4 Higher Order ONE of the following medications: *Heparin 5000 units SQ TID *Enoxaparin/Lovenox 40 mg SQ daily (WT < 150 kg, CrCl > 30 mL/min) *Enoxaparin/Lovenox 30 mg SQ daily (WT < 150 kg, CrCl > 10-29 mL/min) *Enoxaparin/Lovenox 30 mg SQ BID (WT < 150 kg, CrCl > 30 mL/min) AND/OR *Sequential Compression Device (SCD) 5 or more Highest Order ONE of the following medications: *Heparin 5000 units SQ TID (Preferred with Epidurals) *Enoxaparin/Lovenox 40 mg SQ daily (WT < 150 kg, CrCl > 30 mL/min) *Enoxaparin/Lovenox 30 mg SQ daily (WT < 150 kg, CrCl > 10-29 mL/min) *Enoxaparin/Lovenox 30 mg SQ BID (WT < 150 kg, CrCl > 30 mL/min) AND *Sequential Compression Device (SCD) <Nkechi Marks R - 12/21/17 13:16> Total Risk Factor Score Risk Level Prophylaxis Regimen 0-1 Low Early ambulation 2 Moderate Order ONE of the following: *Sequential Compression Device (SCD) *Heparin 5000 units SQ BID 3-4 Higher Order ONE of the following medications: *Heparin 5000 units SQ TID *Enoxaparin/Lovenox 40 mg SQ daily (WT < 150 kg, CrCl > 30 mL/min) *Enoxaparin/Lovenox 30 mg SQ daily (WT < 150 kg, CrCl > 10-29 mL/min) *Enoxaparin/Lovenox 30 mg SQ BID (WT < 150 kg, CrCl > 30 mL/min) AND/OR *Sequential Compression Device (SCD) 5 or more Highest Order ONE of the following medications: *Heparin 5000 units SQ TID (Preferred with Epidurals) *Enoxaparin/Lovenox 40 mg SQ daily (WT < 150 kg, CrCl > 30 mL/min) *Enoxaparin/Lovenox 30 mg SQ daily (WT < 150 kg, CrCl > 10-29 mL/min) *Enoxaparin/Lovenox 30 mg SQ BID (WT < 150 kg, CrCl > 30 mL/min) AND *Sequential Compression Device (SCD) <Alethea Mosley V - 12/20/17 20:39> Assessment and Plan - Assessment (1) GI bleed Code(s): K92.2 - Gastrointestinal hemorrhage, unspecified Status: Suspected (2) Stool guaiac positive Code(s): R19.5 - Other fecal abnormalities Status: Acute (3) Symptomatic anemia Code(s): D64.9 - Anemia, unspecified Status: Acute (4) Atypical chest pain Code(s): R07.89 - Other chest pain Status: Acute (5) Nutrition, metabolism, and development symptoms Code(s): R63.8 - Other symptoms and signs concerning food and fluid intake Status: Acute (6) DVT prophylaxis Status: Acute <Nkechi Marks R - 12/21/17 13:16> (1) GI bleed Code(s): K92.2 - Gastrointestinal hemorrhage, unspecified Status: Suspected (2) Stool guaiac positive Code(s): R19.5 - Other fecal abnormalities Status: Acute (3) Symptomatic anemia Code(s): D64.9 - Anemia, unspecified Status: Acute (4) Atypical chest pain Code(s): R07.89 - Other chest pain Status: Acute (5) Nutrition, metabolism, and development symptoms Code(s): R63.8 - Other symptoms and signs concerning food and fluid intake Status: Acute (6) DVT prophylaxis Status: Acute <Alethea Mosley V - 12/20/17 23:43> - Assessment and Plan Assessment & plan 42 yr old female with PMH of fibroids, heavy periods, pre-eclampsia, and a hx of low Hb (6.8) requiring 2 U pRBC in 2014, presenting to the ED with a 4 day history of excessive fatigue, sleepiness, and a two day history of chest pain and abdominal pain. Found to have a Hb of 6.9 in ED and received two units of pRBC. Positive stool guaiac. CT abdomen: No obstruction or acute inflammatory changes are demonstrated. 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 Anemia DDx include but not limited to: GI bleed v abnormal uterine bleeding v chronic anemia. - Hx of similar episode in 2015 (hb of 6.8, received 2 U of RBC) - Admit to observation - Complete transfusion of 2 U pRBC followed by H/H - Iron studies ordered - Positive guaiac - GI consulted (NPO after midnight) - Repeat labs in AM Chest pain DDx include but not limited to: symptomatic anemia v ACS v PE v acid reflux v HTN - Chest XR negative for cardiopulmonary disease - EKG within normal limits - Troponin 0.02. Repeat at 11pm and 5 Am w/ EKG - Pantoprazole 40mg IV q12hr - Vasotec 1.25mg Inj IV q6 PRN Abdominal pain DDx include but not limited to: fibroids v AUB v menstrual cramps v GI bleed - CT abdomen: No obstruction or acute inflammatory changes are demonstrated. 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 -Continue to monitor - Zofran 4mg IV PRN FEN - Received 250ml NS on ED - Regular diet - Encourage PO hydration - DVT prophylaxis: SCD, pharmacotherapy contraindicated, pt with possible acute bleed. <Alethea Mosley V - 12/20/17 23:49> - Attending Attestation Patient discussed with the resident team. Agree with admission and assessment and plan. <Nkechi Marks R - 12/21/17 13:16>
[2017-12-20] MEDS: Pantoprazole Inj 40 MG Vial IV.PUSH SCH (21:20)
[2017-12-20 21:43] LABS: % Iron Saturation 3.3 % (20-50)
[2017-12-20 21:45] LABS: Troponin I 0.02 ng/mL (0.02-0.05)
[2017-12-21 05:30] LABS: Baso % (Auto) 0.3 % (0.0-2.0); Eos # (Auto) 0.1 th/mm3 (0.0-0.4); Hematocrit 29.2 % (35.0-46.0); Hemoglobin 8.6 gm/dL (11.6-15.3); Lymph # (Auto) 1.4 th/mm3 (1.0-4.8); Mean Corpuscular Hemoglobin 18.1 pg (27.0-34.0); Mean Corpuscular Volume 61.9 fL (80.0-100.0); Mono # (Auto) 0.5 th/mm3 (0.0-0.9); Mono % (Auto) 6.7 % (0.0-8.0); Neut # (Auto) 5.2 th/mm3 (1.8-7.7); Platelet Count 207 th/mm3 (150-450); Red Blood Count 4.72 mil/mm3 (4.00-5.30); Red Cell Distribution Width 24.9 % (11.6-17.2); White Blood Count 7.3 th/mm3 (4.0-11.0)
[2017-12-21 05:40] LABS: Mean Corpuscular HGB Conc 29.3 % (32.0-36.0)
[2017-12-21 05:52] LABS: Alanine Aminotransferase 14 U/L (10-53); Albumin 3.4 g/dL (3.4-5.0); Anion Gap 10 meq/L (5-15); Aspartate Aminotransferase 17 U/L (15-37); Blood Urea Nitrogen 7 mg/dL (7-18); Calcium 8.5 mg/dL (8.5-10.1); Carbon Dioxide 20.5 meq/L (21.0-32.0); Chloride 111 meq/L (98-107); Glomerular Filtration Rate Greater Than 89 mL/min (>89); Glucose,Random 84 mg/dL (74-106); Potassium 3.6 meq/L (3.5-5.1); Sodium 141 meq/L (136-145)
[2017-12-21 05:55] LABS: Alkaline Phosphatase 80 U/L (45-117); Total Protein 7.6 g/dL (6.4-8.2)
[2017-12-21] MEDS: Pantoprazole Inj 40 MG Vial IV.PUSH SCH ×2 (08:28→21:31)
--- NOTE | 2017-12-21 11:11 | P.CONGI ---
History of Present Illness Consult date: 12/21/17 Consult reason: Suspected GI bleed, hemoglobin 6.9 on admission, positive Hemoccult stool Chief complaint: Chest Pain; Symptomatic Anemia History of Present Illness: Mrs. Shine is a 42-year-old female with a past medical history significant for uterine fibroids, heavy menstrual periods, preeclampsia during 4 years ago, and a history of low hemoglobin 6.8 requiring 2 units of packed RBCs in 2015. Patient presented to the ED on 12/20/2017 reporting a 4-day history of fatigue sleepiness and chest pressure. Patient reports also lower abdominal cramping with severe heartburn that occurred after every meal. She endorses nausea but denies vomiting. Patient denies any use of aspirin however she does state that she utilized ibuprofen 400 mg twice daily for the past 3-4 days for painful menstrual cramping. States she took Tums as needed with no relief of symptoms. Patient denies ever having had an EGD in the past and states a positive family history of gastric ulcersher dad. Patient reports, "very very dark brown stools" over the last 4 days. She states she has history of hemorrhoids and has had hard stools over the last week. Prior history includes patient having one soft brown stool daily without constipation or diarrhea. Of note, patient's stool was Hemoccult positive on arrival to ED. Patient denies ever having had a colonoscopy in the past. She states she does not drink alcohol, however she smokes about 2 cigarettes daily. On arrival to ED hemoglobin 6.9 hematocrit 24.6, after receiving 2 units of packed RBCs a.m. labs revealed hemoglobin of 8.6 with hematocrit of 29.2. I discussed the need for EGD with patient as well as the importance of avoiding NSAIDs and aspirin in the future. We discussed antireflux precautions as well. Patient verbalizes understanding and agreement at this time. We will schedule for EGD today as patient has been n.p.o. <Ivon Kirby - Last Filed: 12/21/17 10:57> Review of Systems All other systems reviewed negative except as stated in HPI <Ivon Kirby - Last Filed: 12/21/17 10:57> PMFSH - History History Provided By: Patient - Medical History Medical History: Medical History (Last Updated 12/20/17 @ 21:45 by Alethea Murphy MD, R1) Fibroid uterus Hypertension Pre-eclampsia affecting childbirth Severe anemia Transfusion history - Surgical History Surgical History: Surgical History (Last Reviewed 12/20/17 @ 21:45 by Alethea Murphy MD, R1) History of section - Tobacco History Second Hand Smoke Exposure: Yes Tobacco Use In Past 30 Days: Yes Smoking Status: Current every day smoker Tobacco Type: Cigarettes - Alcohol History How Often Do You Have a Drink Containing Alcohol: 2 to 4 times a month - Substance Use History Substance History: No History of Abuse - Travel History Recent Travel in the [place] Within the Last 8 Weeks: No Recent Travel Out of the Country Within the Last 8 Weeks: No - Immunization History Tetanus Immunization: <5 Years Hx Influenza Vaccine This Season: No <Ivon Kirby - Last Filed: 12/21/17 10:57> - Medical History Medical History: Medical History (Last Updated 12/20/17 @ 21:45 by Alethea Murphy MD, R1) Fibroid uterus Hypertension Pre-eclampsia affecting childbirth Severe anemia Transfusion history - Surgical History Surgical History: Surgical History (Last Reviewed 12/20/17 @ 21:45 by Alethea Murphy MD, R1) History of section <Selwyn Barnes - Last Filed: 12/21/17 12:01> Medications and Allergies Active Medications: Active Medications Acetaminophen (Tylenol) 650 mg PO Q4H PRN PRN Reason: PAIN 1-10 AND/OR FEVER >101F Enalaprilat (Vasotec Inj) 1.25 mg IV.PUSH Q6H PRN PRN Reason: SEE LABEL COMMENTS Ondansetron HCl (Zofran Inj) 4 mg IV.PUSH Q6H PRN PRN Reason: NAUSEA OR VOMITING Pantoprazole Sodium (Protonix Inj) 40 mg IV.PUSH Q12H BRITTANY Last Admin: 12/21/17 08:28 Dose: 40 mg Sodium Chloride (Ns Flush) 2 ml IV.FLUSH UNSCH PRN PRN Reason: FLUSH AFTER USING IV ACCESS <Ivon Kirby - Last Filed: 12/21/17 10:57> Active Medications: Active Medications Acetaminophen (Tylenol) 650 mg PO Q4H PRN PRN Reason: PAIN 1-10 AND/OR FEVER >101F Enalaprilat (Vasotec Inj) 1.25 mg IV.PUSH Q6H PRN PRN Reason: SEE LABEL COMMENTS Ferrous Sulfate (Ferosul) 325 mg PO DAILY BRITTANY Ondansetron HCl (Zofran Inj) 4 mg IV.PUSH Q6H PRN PRN Reason: NAUSEA OR VOMITING Pantoprazole Sodium (Protonix Inj) 40 mg IV.PUSH Q12H BRITTANY Last Admin: 12/21/17 08:28 Dose: 40 mg Sodium Chloride (Ns Flush) 2 ml IV.FLUSH UNSCH PRN PRN Reason: FLUSH AFTER USING IV ACCESS <Selwyn Barnes E - Last Filed: 12/21/17 12:01> Allergies Allergy/AdvReac Type Severity Reaction Status Date / Time No Known Allergies Allergy Verified 12/20/17 16:33 Home Medications Medication Instructions Recorded Confirmed Type No Known Home Medications 12/20/17 12/20/17 History Exam Vital signs: Vital Signs 12/20/17 16:20 12/20/17 16:33 12/20/17 16:48 Temperature 98.5 F Pulse Rate 87 80 80 Respiratory Rate 16 20 18 Blood Pressure 188/107 H 172/98 H Pulse Oximetry 100 98 98 12/20/17 19:49 12/20/17 20:47 12/20/17 21:00 Temperature 98.2 F 98.5 F Pulse Rate 82 75 Respiratory Rate 18 18 Blood Pressure 168/98 H 149/81 H Pulse Oximetry 99 100 98 12/20/17 21:04 12/20/17 22:00 12/20/17 22:01 Temperature 98.3 F 98.2 F 98.2 F Pulse Rate 77 82 82 Respiratory Rate 17 20 20 Blood Pressure 156/89 H 168/70 H 168/82 H Pulse Oximetry 100 98 12/20/17 23:40 12/21/17 00:00 12/21/17 00:22 Temperature 98 F 98 F Pulse Rate 74 85 Respiratory Rate 20 20 Blood Pressure 155/90 H 155/90 H Pulse Oximetry 98 100 100 12/21/17 00:38 12/21/17 02:49 12/21/17 03:48 Temperature 98.6 F 98.1 F 98.1 F Pulse Rate 66 72 72 Respiratory Rate 18 18 18 Blood Pressure 149/75 H 159/86 H 159/86 H Pulse Oximetry 100 99 99 12/21/17 04:00 12/21/17 08:00 Temperature 98.1 F Pulse Rate 72 65 Respiratory Rate 18 Blood Pressure 126/68 Pulse Oximetry 100 Intake & Output 12/20/17 12/21/17 12/21/17 18:59 06:59 18:59 Intake Total 400 / 400 Balance 400 / 400 Weight 82.554 kg 84.2 kg Intake: Oral 0 / 0 Intake (Blood Product) Amt 400 / 400 Rbc As-3 Leukoreduced Unit 400 / 400 [id number] Rbc As-3 Leukoreduced Unit 0 / 0 [id number] Other: # Voids 1 Date of Last Bowel Movement 12/20/17 12/21/17 Weight On Admission 84.2 kg - Constitutional no acute distress - Routine HEENT Exam Head: Present: normocephalic - Routine Respiratory Exam Present: CTA bilaterally - Routine Cardiovascular Exam Present: RRR. Absent: tachycardia - Routine Abdominal Exam Present: soft, normoactive bowel sounds. Absent: tenderness, distended, guarding, firm Comments: denies tenderness - Routine Skin Exam Present: dry, warm - Routine Neurological Exam Present: alert, oriented X3 <Kirby,Ivon - Last Filed: 12/21/17 10:57> Vital signs: Vital Signs 12/20/17 16:20 12/20/17 16:33 12/20/17 16:48 Temperature 98.5 F Pulse Rate 87 80 80 Respiratory Rate 16 20 18 Blood Pressure 188/107 H 172/98 H Pulse Oximetry 100 98 98 12/20/17 19:49 12/20/17 20:47 12/20/17 21:00 Temperature 98.2 F 98.5 F Pulse Rate 82 75 Respiratory Rate 18 18 Blood Pressure 168/98 H 149/81 H Pulse Oximetry 99 100 98 12/20/17 21:04 12/20/17 22:00 12/20/17 22:01 Temperature 98.3 F 98.2 F 98.2 F Pulse Rate 77 82 82 Respiratory Rate 17 20 20 Blood Pressure 156/89 H 168/70 H 168/82 H Pulse Oximetry 100 98 12/20/17 23:40 12/21/17 00:00 12/21/17 00:22 Temperature 98 F 98 F Pulse Rate 74 85 Respiratory Rate 20 20 Blood Pressure 155/90 H 155/90 H Pulse Oximetry 98 100 100 12/21/17 00:38 12/21/17 02:49 12/21/17 03:48 Temperature 98.6 F 98.1 F 98.1 F Pulse Rate 66 72 72 Respiratory Rate 18 18 18 Blood Pressure 149/75 H 159/86 H 159/86 H Pulse Oximetry 100 99 99 12/21/17 04:00 12/21/17 08:00 Temperature 98.1 F Pulse Rate 72 65 Respiratory Rate 18 Blood Pressure 126/68 Pulse Oximetry 100 Intake & Output 12/20/17 12/21/17 12/21/17 18:59 06:59 18:59 Intake Total 400 / 400 Balance 400 / 400 Weight 82.554 kg 84.2 kg Intake: Oral 0 / 0 Intake (Blood Product) Amt 400 / 400 Rbc As-3 Leukoreduced Unit 400 / 400 [id number] Rbc As-3 Leukoreduced Unit 0 / 0 [id number] Other: # Voids 1 Date of Last Bowel Movement 12/20/17 12/21/17 Weight On Admission 84.2 kg <Selwyn Barnes - Last Filed: 12/21/17 12:01> Results - Labs CBC & Chem 7: 12/21/17 04:23 12/21/17 04:23 Labs: Laboratory Results - last 24 hr 12/20/17 12/20/17 12/20/17 17:00 17:00 17:00 WBC 4.8 RBC 4.30 Hgb 6.9 L* Hct 24.6 L MCV 57.2 L MCH 15.9 L MCHC 27.9 L RDW 21.3 H Plt Count 237 MPV 8.5 Prelim Diff (Auto) Slide review pending Neut % (Auto) 56.8 Lymph % (Auto) 32.3 Carlton % (Auto) 8.1 H Eos % (Auto) 2.3 Baso % (Auto) 0.5 Neut # (Auto) 2.7 Lymph # (Auto) 1.6 Carlton # (Auto) 0.4 Eos # (Auto) 0.1 Baso # (Auto) 0.0 WBC Differential . Diff Scan Auto diff confirmed Differential Comment . Platelet Estimate Normal Platelet Morphology Normal Tear Drop Cells 1+ H Ovalocytes 3+ H PT 9.9 INR 1.0 APTT 23.8 L Sodium 141 Potassium 3.8 Chloride 112 H Carbon Dioxide 21.0 Anion Gap 8 BUN 9 Creatinine 0.87 Estimated GFR 86 L Random Glucose 87 Calcium 8.7 Iron TIBC % Saturation Ferritin Total Bilirubin 0.4 AST 19 ALT 16 Alkaline Phosphatase 94 Total Creatine Kinase 90 Troponin I 0.02 Total Protein 8.1 Albumin 3.6 Lipase 169 Urine Color Urine Clarity Urine pH Ur Specific Hanahan Urine Protein Urine Glucose (UA) Urine Ketones Urine Occult Blood Urine Nitrate Urine Bilirubin Urine Urobilinogen Ur Leukocyte Esterase Urine RBC Urine WBC Ur Squamous Epith Cells Urine Bacteria Micro UA Comment Ur Microscopic Review Urine Culture Comments Blood Type Antibody Screen MTS Gel Crossmatch 12/20/17 12/20/17 12/20/17 17:00 17:00 17:00 WBC RBC Hgb Hct MCV MCH MCHC RDW Plt Count MPV Prelim Diff (Auto) Neut % (Auto) Lymph % (Auto) Carlton % (Auto) Eos % (Auto) Baso % (Auto) Neut # (Auto) Lymph # (Auto) Carlton # (Auto) Eos # (Auto) Baso # (Auto) WBC Differential Diff Scan Differential Comment Platelet Estimate Platelet Morphology Tear Drop Cells Ovalocytes PT INR APTT Sodium Potassium Chloride Carbon Dioxide Anion Gap BUN Creatinine Estimated GFR Random Glucose Calcium Iron 16 L TIBC 484 H % Saturation 3.3 L Ferritin 2 L Total Bilirubin AST ALT Alkaline Phosphatase Total Creatine Kinase Troponin I 0.02 Total Protein Albumin Lipase Urine Color Yellow Urine Clarity Hazy H Urine pH 5.0 Ur Specific [place] 1.019 Urine Protein Negative Urine Glucose (UA) Negative Urine Ketones Negative Urine Occult Blood Negative Urine Nitrate Negative Urine Bilirubin Negative Urine Urobilinogen 2.0 H Ur Leukocyte Esterase Negative Urine RBC Less than 1 Urine WBC 7 H Ur Squamous Epith Cells 8 Urine Bacteria Rare H Micro UA Comment Culture not ind Ur Microscopic Review Not Reportable Urine Culture Comments Culture not ind Blood Type Antibody Screen MTS Gel Crossmatch 12/20/17 12/21/17 12/21/17 18:05 01:10 04:23 WBC RBC Hgb Hct MCV MCH MCHC RDW Plt Count MPV Prelim Diff (Auto) Neut % (Auto) Lymph % (Auto) Carlton % (Auto) Eos % (Auto) Baso % (Auto) Neut # (Auto) Lymph # (Auto) Carlton # (Auto) Eos # (Auto) Baso # (Auto) WBC Differential Diff Scan Differential Comment Platelet Estimate Platelet Morphology Tear Drop Cells Ovalocytes PT INR APTT Sodium 141 Potassium 3.6 Chloride 111 H Carbon Dioxide 20.5 L Anion Gap 10 BUN 7 Creatinine 0.78 Estimated GFR Greater than 89 Random Glucose 84 Calcium 8.5 Iron TIBC % Saturation Ferritin Total Bilirubin 0.7 AST 17 ALT 14 Alkaline Phosphatase 80 Total Creatine Kinase Troponin I 0.03 Less than 0.02 L Total Protein 7.6 Albumin 3.4 Lipase Urine Color Urine Clarity Urine pH Ur Specific [place] Urine Protein Urine Glucose (UA) Urine Ketones Urine Occult Blood Urine Nitrate Urine Bilirubin Urine Urobilinogen Ur Leukocyte Esterase Urine RBC Urine WBC Ur Squamous Epith Cells Urine Bacteria Micro UA Comment Ur Microscopic Review Urine Culture Comments Blood Type O Positive Antibody Screen Negative MTS Gel Crossmatch See Detail 12/21/17 04:23 WBC 7.3 D RBC 4.72 Hgb 8.6 L Hct 29.2 L MCV 61.9 L D MCH 18.1 L MCHC 29.3 L RDW 24.9 H D Plt Count 207 MPV 9.0 Prelim Diff (Auto) Neut % (Auto) 72.0 H Lymph % (Auto) 19.0 Carlton % (Auto) 6.7 Eos % (Auto) 2.0 Baso % (Auto) 0.3 Neut # (Auto) 5.2 Lymph # (Auto) 1.4 Carlton # (Auto) 0.5 Eos # (Auto) 0.1 Baso # (Auto) 0.0 WBC Differential . Diff Scan Differential Comment Auto diff final Platelet Estimate Platelet Morphology Tear Drop Cells Ovalocytes PT INR APTT Sodium Potassium Chloride Carbon Dioxide Anion Gap BUN Creatinine Estimated GFR Random Glucose Calcium Iron TIBC % Saturation Ferritin Total Bilirubin AST ALT Alkaline Phosphatase Total Creatine Kinase Troponin I Total Protein Albumin Lipase Urine Color Urine Clarity Urine pH Ur Specific [place] Urine Protein Urine Glucose (UA) Urine Ketones Urine Occult Blood Urine Nitrate Urine Bilirubin Urine Urobilinogen Ur Leukocyte Esterase Urine RBC Urine WBC Ur Squamous Epith Cells Urine Bacteria Micro UA Comment Ur Microscopic Review Urine Culture Comments Blood Type Antibody Screen MTS Gel Crossmatch - Imaging Impressions Chest X-Ray 12/20/17 16:48 CONCLUSION: No acute cardiopulmonary disease. Abdomen/Pelvis CT 12/20/17 16:49 CONCLUSION: 1. No obstruction or acute inflammatory changes are demonstrated. 2. Multiple cysts of the left ovary measuring up to 3.8 cm in size. Similar findings were seen on the prior studies. Low-grade cystic neoplasm would be in the differential. 3. Uterine fibroids are again noted. 4. 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 <Ivon Kirby - Last Filed: 12/21/17 10:57> - Labs CBC & Chem 7: 12/21/17 04:23 12/21/17 04:23 Labs: Laboratory Results - last 24 hr 12/20/17 12/20/17 12/20/17 17:00 17:00 17:00 WBC 4.8 RBC 4.30 Hgb 6.9 L* Hct 24.6 L MCV 57.2 L MCH 15.9 L MCHC 27.9 L RDW 21.3 H Plt Count 237 MPV 8.5 Prelim Diff (Auto) Slide review pending Neut % (Auto) 56.8 Lymph % (Auto) 32.3 Carlton % (Auto) 8.1 H Eos % (Auto) 2.3 Baso % (Auto) 0.5 Neut # (Auto) 2.7 Lymph # (Auto) 1.6 Carlton # (Auto) 0.4 Eos # (Auto) 0.1 Baso # (Auto) 0.0 WBC Differential . Diff Scan Auto diff confirmed Differential Comment . Platelet Estimate Normal Platelet Morphology Normal Tear Drop Cells 1+ H Ovalocytes 3+ H PT 9.9 INR 1.0 APTT 23.8 L Sodium 141 Potassium 3.8 Chloride 112 H Carbon Dioxide 21.0 Anion Gap 8 BUN 9 Creatinine 0.87 Estimated GFR 86 L Random Glucose 87 Calcium 8.7 Iron TIBC % Saturation Ferritin Total Bilirubin 0.4 AST 19 ALT 16 Alkaline Phosphatase 94 Total Creatine Kinase 90 Troponin I 0.02 Total Protein 8.1 Albumin 3.6 Lipase 169 Urine Color Urine Clarity Urine pH Ur Specific [place] Urine Protein Urine Glucose (UA) Urine Ketones Urine Occult Blood Urine Nitrate Urine Bilirubin Urine Urobilinogen Ur Leukocyte Esterase Urine RBC Urine WBC Ur Squamous Epith Cells Urine Bacteria Micro UA Comment Ur Microscopic Review Urine Culture Comments Blood Type Antibody Screen MTS Gel Crossmatch 12/20/17 12/20/17 12/20/17 17:00 17:00 17:00 WBC RBC Hgb Hct MCV MCH MCHC RDW Plt Count MPV Prelim Diff (Auto) Neut % (Auto) Lymph % (Auto) Carlton % (Auto) Eos % (Auto) Baso % (Auto) Neut # (Auto) Lymph # (Auto) Carlton # (Auto) Eos # (Auto) Baso # (Auto) WBC Differential Diff Scan Differential Comment Platelet Estimate Platelet Morphology Tear Drop Cells Ovalocytes PT INR APTT Sodium Potassium Chloride Carbon Dioxide Anion Gap BUN Creatinine Estimated GFR Random Glucose Calcium Iron 16 L TIBC 484 H % Saturation 3.3 L Ferritin 2 L Total Bilirubin AST ALT Alkaline Phosphatase Total Creatine Kinase Troponin I 0.02 Total Protein Albumin Lipase Urine Color Yellow Urine Clarity Hazy H Urine pH 5.0 Ur Specific [place] 1.019 Urine Protein Negative Urine Glucose (UA) Negative Urine Ketones Negative Urine Occult Blood Negative Urine Nitrate Negative Urine Bilirubin Negative Urine Urobilinogen 2.0 H Ur Leukocyte Esterase Negative Urine RBC Less than 1 Urine WBC 7 H Ur Squamous Epith Cells 8 Urine Bacteria Rare H Micro UA Comment Culture not ind Ur Microscopic Review Not Reportable Urine Culture Comments Culture not ind Blood Type Antibody Screen MTS Gel Crossmatch 12/20/17 12/21/17 12/21/17 18:05 01:10 04:23 WBC RBC Hgb Hct MCV MCH MCHC RDW Plt Count MPV Prelim Diff (Auto) Neut % (Auto) Lymph % (Auto) Carlton % (Auto) Eos % (Auto) Baso % (Auto) Neut # (Auto) Lymph # (Auto) Carlton # (Auto) Eos # (Auto) Baso # (Auto) WBC Differential Diff Scan Differential Comment Platelet Estimate Platelet Morphology Tear Drop Cells Ovalocytes PT INR APTT Sodium 141 Potassium 3.6 Chloride 111 H Carbon Dioxide 20.5 L Anion Gap 10 BUN 7 Creatinine 0.78 Estimated GFR Greater than 89 Random Glucose 84 Calcium 8.5 Iron TIBC % Saturation Ferritin Total Bilirubin 0.7 AST 17 ALT 14 Alkaline Phosphatase 80 Total Creatine Kinase Troponin I 0.03 Less than 0.02 L Total Protein 7.6 Albumin 3.4 Lipase Urine Color Urine Clarity Urine pH Ur Specific [place] Urine Protein Urine Glucose (UA) Urine Ketones Urine Occult Blood Urine Nitrate Urine Bilirubin Urine Urobilinogen Ur Leukocyte Esterase Urine RBC Urine WBC Ur Squamous Epith Cells Urine Bacteria Micro UA Comment Ur Microscopic Review Urine Culture Comments Blood Type O Positive Antibody Screen Negative MTS Gel Crossmatch See Detail 12/21/17 04:23 WBC 7.3 D RBC 4.72 Hgb 8.6 L Hct 29.2 L MCV 61.9 L D MCH 18.1 L MCHC 29.3 L RDW 24.9 H D Plt Count 207 MPV 9.0 Prelim Diff (Auto) Neut % (Auto) 72.0 H Lymph % (Auto) 19.0 Carlton % (Auto) 6.7 Eos % (Auto) 2.0 Baso % (Auto) 0.3 Neut # (Auto) 5.2 Lymph # (Auto) 1.4 Carlton # (Auto) 0.5 Eos # (Auto) 0.1 Baso # (Auto) 0.0 WBC Differential . Diff Scan Differential Comment Auto diff final Platelet Estimate Platelet Morphology Tear Drop Cells Ovalocytes PT INR APTT Sodium Potassium Chloride Carbon Dioxide Anion Gap BUN Creatinine Estimated GFR Random Glucose Calcium Iron TIBC % Saturation Ferritin Total Bilirubin AST ALT Alkaline Phosphatase Total Creatine Kinase Troponin I Total Protein Albumin Lipase Urine Color Urine Clarity Urine pH Ur Specific [place] Urine Protein Urine Glucose (UA) Urine Ketones Urine Occult Blood Urine Nitrate Urine Bilirubin Urine Urobilinogen Ur Leukocyte Esterase Urine RBC Urine WBC Ur Squamous Epith Cells Urine Bacteria Micro UA Comment Ur Microscopic Review Urine Culture Comments Blood Type Antibody Screen MTS Gel Crossmatch - Imaging Impressions Chest X-Ray 12/20/17 16:48 CONCLUSION: No acute cardiopulmonary disease. Abdomen/Pelvis CT 12/20/17 16:49 CONCLUSION: 1. No obstruction or acute inflammatory changes are demonstrated. 2. Multiple cysts of the left ovary measuring up to 3.8 cm in size. Similar findings were seen on the prior studies. Low-grade cystic neoplasm would be in the differential. 3. Uterine fibroids are again noted. 4. 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 <Selwyn Banres - Last Filed: 12/21/17 12:01> Assessment and Plan (1) Symptomatic anemia Status: Acute Code(s): D64.9 - Anemia, unspecified (2) Stool guaiac positive Status: Acute Code(s): R19.5 - Other fecal abnormalities (3) GI bleed Status: Suspected Code(s): K92.2 - Gastrointestinal hemorrhage, unspecified - Plan Mrs. Shine is a 42-year-old female with a past medical history significant for uterine fibroids, heavy menstrual periods, preeclampsia during 4 years ago, and a history of low hemoglobin 6.8 requiring 2 units of packed RBCs in 2015. Patient presented to the ED on 12/20/2017 reporting a 4-day history of fatigue sleepiness and chest pressure. Patient reports also lower abdominal cramping with severe heartburn that occurred after every meal. She endorses nausea but denies vomiting. Patient denies any use of aspirin however she does state that she utilized ibuprofen 400 mg twice daily for the past 3-4 days for painful menstrual cramping. States she took Tums as needed with no relief of symptoms. Patient denies ever having had an EGD in the past and states a positive family history of gastric ulcersher dad. Patient reports, "very very dark brown stools" over the last 4 days. She states she has history of hemorrhoids and has had hard stools over the last week. Prior history includes patient having one soft brown stool daily without constipation or diarrhea. Of note, patient's stool was Hemoccult positive on arrival to ED. Patient denies ever having had a colonoscopy in the past. She states she does not drink alcohol, however she smokes about 2 cigarettes daily. On arrival to ED hemoglobin 6.9 hematocrit 24.6, after receiving 2 units of packed RBCs a.m. labs revealed hemoglobin of 8.6 with hematocrit of 29.2. I discussed the need for EGD with patient as well as the importance of avoiding NSAIDs and aspirin in the future. We discussed antireflux precautions as well. Patient verbalizes understanding and agreement at this time. We will schedule for EGD today as patient has been n.p.o Plan: -Maintain n.p.o. status -Obtain consent for EGD -Hold any anticoagulant -Monitor for bleeding -Monitor labs -Transfuse as needed -Continue PPI -Supportive care -Further recommendations to follow based on findings This patient has been seen by myself and Dr. Barnes and this note is written on his behalf <Ivon Kirby - Last Filed: 12/21/17 10:57> (1) Symptomatic anemia Status: Acute Code(s): D64.9 - Anemia, unspecified (2) Stool guaiac positive Status: Acute Code(s): R19.5 - Other fecal abnormalities (3) GI bleed Status: Suspected Code(s): K92.2 - Gastrointestinal hemorrhage, unspecified - Plan Patient seen and examined Agree with H&P We will continue with current supportive care Will monitor labs We will proceed with an EGD next <Selwyn Barnes E - Last Filed: 12/21/17 12:01>
--- NOTE | 2017-12-21 11:31 | P.PNFP ---
Subjective Interval history: Patient reports symptomatically improving after transfusion, but still complains of fatigue and malaise. She endorses nausea without vomiting.She has not had any further chest pain. She was stable over night with no events. Discussed with patient the plan for the day is to wait for GI recommendations. <Melita Pratt - 12/21/17 11:47> Results - Labs Result diagrams: 12/21/17 04:23 12/21/17 04:23 <Nkechi Marks - 12/21/17 13:23> Abnormal lab results 12/20/17 12/20/17 12/20/17 Range/Units 17:00 17:00 17:00 Hgb 6.9 L* (11.6-15.3) gm/dL Hct 24.6 L (35.0-46.0) % MCV 57.2 L (80.0-100.0) fL MCH 15.9 L (27.0-34.0) pg MCHC 27.9 L (32.0-36.0) % RDW 21.3 H (11.6-17.2) % Neut % (Auto) (16.0-70.0) % [place] % (Auto) 8.1 H (0.0-8.0) % Tear Drop Cells 1+ H (None) Ovalocytes 3+ H (None) APTT 23.8 L (24.3-30.1) sec Chloride 112 H (98-107) meq/L Carbon Dioxide (21.0-32.0) meq/L Estimated GFR 86 L (>89) mL/min Iron (50-170) mcg/dL TIBC (250-450) mcg/dL % Saturation (20-50) % Ferritin (8-252) ng/mL Troponin I (0.02-0.05) ng/mL Urine Clarity (Clear) Urine Urobilinogen (Less than 2) mg/dL Urine WBC (0-5) /hpf Urine Bacteria (None) /hpf MTS Gel Crossmatch 12/20/17 12/20/17 12/20/17 Range/Units 17:00 17:00 17:00 Hgb (11.6-15.3) gm/dL Hct (35.0-46.0) % MCV (80.0-100.0) fL MCH (27.0-34.0) pg MCHC (32.0-36.0) % RDW (11.6-17.2) % Neut % (Auto) (16.0-70.0) % [place] % (Auto) (0.0-8.0) % Tear Drop Cells (None) Ovalocytes (None) APTT (24.3-30.1) sec Chloride (98-107) meq/L Carbon Dioxide (21.0-32.0) meq/L Estimated GFR (>89) mL/min Iron 16 L (50-170) mcg/dL TIBC 484 H (250-450) mcg/dL % Saturation 3.3 L (20-50) % Ferritin 2 L (8-252) ng/mL Troponin I (0.02-0.05) ng/mL Urine Clarity Hazy H (Clear) Urine Urobilinogen 2.0 H (Less than 2) mg/dL Urine WBC 7 H (0-5) /hpf Urine Bacteria Rare H (None) /hpf MTS Gel Crossmatch 12/20/17 12/21/17 12/21/17 Range/Units 18:05 04:23 04:23 Hgb 8.6 L (11.6-15.3) gm/dL Hct 29.2 L (35.0-46.0) % MCV 61.9 L D (80.0-100.0) fL MCH 18.1 L (27.0-34.0) pg MCHC 29.3 L (32.0-36.0) % RDW 24.9 H D (11.6-17.2) % Neut % (Auto) 72.0 H (16.0-70.0) % [place] % (Auto) (0.0-8.0) % Tear Drop Cells (None) Ovalocytes (None) APTT (24.3-30.1) sec Chloride 111 H (98-107) meq/L Carbon Dioxide 20.5 L (21.0-32.0) meq/L Estimated GFR (>89) mL/min Iron (50-170) mcg/dL TIBC (250-450) mcg/dL % Saturation (20-50) % Ferritin (8-252) ng/mL Troponin I Less than 0.02 L (0.02-0.05) ng/mL Urine Clarity (Clear) Urine Urobilinogen (Less than 2) mg/dL Urine WBC (0-5) /hpf Urine Bacteria (None) /hpf MTS Gel Crossmatch See Detail Short CBC 12/20/17 12/21/17 Range/Units 17:00 04:23 WBC 4.8 7.3 D (4.0-11.0) th/mm3 Hgb 6.9 L* 8.6 L (11.6-15.3) gm/dL Hct 24.6 L 29.2 L (35.0-46.0) % Plt Count 237 207 (150-450) th/mm3 BMP 12/20/17 12/21/17 17:00 04:23 Sodium 141 141 Potassium 3.8 3.6 Chloride 112 H 111 H Carbon Dioxide 21.0 20.5 L BUN 9 7 Creatinine 0.87 0.78 Calcium 8.7 8.5 Cardiac Enzymes 12/20/17 12/20/17 12/21/17 Range/Units 17:00 17:00 01:10 Total Creatine Kinase 90 (26-192) U/L Troponin I 0.02 0.02 0.03 (0.02-0.05) ng/mL 12/21/17 Range/Units 04:23 Total Creatine Kinase (26-192) U/L Troponin I Less than 0.02 L (0.02-0.05) ng/mL Liver Function 12/20/17 12/21/17 Range/Units 17:00 04:23 Total Bilirubin 0.4 0.7 (0.2-1.0) mg/dL AST 19 17 (15-37) U/L ALT 16 14 (10-53) U/L Alkaline Phosphatase 94 80 (45-117) U/L Albumin 3.6 3.4 (3.4-5.0) g/dL Urine 12/20/17 Range/Units 17:00 Urine Color Yellow (Yellw/Straw) Urine Clarity Hazy H (Clear) Urine pH 5.0 (5.0-8.5) Ur Specific [place] 1.019 (1.002-1.035) Urine Protein Negative (Neg-Trace) mg/dL Urine Glucose (UA) Negative (Negative) mg/dL <Nkechi Marks - 12/21/17 13:23> Abnormal lab results 12/20/17 12/20/17 12/20/17 Range/Units 17:00 17:00 17:00 Hgb 6.9 L* (11.6-15.3) gm/dL Hct 24.6 L (35.0-46.0) % MCV 57.2 L (80.0-100.0) fL MCH 15.9 L (27.0-34.0) pg MCHC 27.9 L (32.0-36.0) % RDW 21.3 H (11.6-17.2) % Neut % (Auto) (16.0-70.0) % [place] % (Auto) 8.1 H (0.0-8.0) % Tear Drop Cells 1+ H (None) Ovalocytes 3+ H (None) APTT 23.8 L (24.3-30.1) sec Chloride 112 H (98-107) meq/L Carbon Dioxide (21.0-32.0) meq/L Estimated GFR 86 L (>89) mL/min Iron (50-170) mcg/dL TIBC (250-450) mcg/dL % Saturation (20-50) % Ferritin (8-252) ng/mL Troponin I (0.02-0.05) ng/mL Urine Clarity (Clear) Urine Urobilinogen (Less than 2) mg/dL Urine WBC (0-5) /hpf Urine Bacteria (None) /hpf MTS Gel Crossmatch 12/20/17 12/20/17 12/20/17 Range/Units 17:00 17:00 17:00 Hgb (11.6-15.3) gm/dL Hct (35.0-46.0) % MCV (80.0-100.0) fL MCH (27.0-34.0) pg MCHC (32.0-36.0) % RDW (11.6-17.2) % Neut % (Auto) (16.0-70.0) % [place] % (Auto) (0.0-8.0) % Tear Drop Cells (None) Ovalocytes (None) APTT (24.3-30.1) sec Chloride (98-107) meq/L Carbon Dioxide (21.0-32.0) meq/L Estimated GFR (>89) mL/min Iron 16 L (50-170) mcg/dL TIBC 484 H (250-450) mcg/dL % Saturation 3.3 L (20-50) % Ferritin 2 L (8-252) ng/mL Troponin I (0.02-0.05) ng/mL Urine Clarity Hazy H (Clear) Urine Urobilinogen 2.0 H (Less than 2) mg/dL Urine WBC 7 H (0-5) /hpf Urine Bacteria Rare H (None) /hpf MTS Gel Crossmatch 12/20/17 12/21/17 12/21/17 Range/Units 18:05 04:23 04:23 Hgb 8.6 L (11.6-15.3) gm/dL Hct 29.2 L (35.0-46.0) % MCV 61.9 L D (80.0-100.0) fL MCH 18.1 L (27.0-34.0) pg MCHC 29.3 L (32.0-36.0) % RDW 24.9 H D (11.6-17.2) % Neut % (Auto) 72.0 H (16.0-70.0) % [place] % (Auto) (0.0-8.0) % Tear Drop Cells (None) Ovalocytes (None) APTT (24.3-30.1) sec Chloride 111 H (98-107) meq/L Carbon Dioxide 20.5 L (21.0-32.0) meq/L Estimated GFR (>89) mL/min Iron (50-170) mcg/dL TIBC (250-450) mcg/dL % Saturation (20-50) % Ferritin (8-252) ng/mL Troponin I Less than 0.02 L (0.02-0.05) ng/mL Urine Clarity (Clear) Urine Urobilinogen (Less than 2) mg/dL Urine WBC (0-5) /hpf Urine Bacteria (None) /hpf MTS Gel Crossmatch See Detail Short CBC 12/20/17 12/21/17 Range/Units 17:00 04:23 WBC 4.8 7.3 D (4.0-11.0) th/mm3 Hgb 6.9 L* 8.6 L (11.6-15.3) gm/dL Hct 24.6 L 29.2 L (35.0-46.0) % Plt Count 237 207 (150-450) th/mm3 BMP 12/20/17 12/21/17 17:00 04:23 Sodium 141 141 Potassium 3.8 3.6 Chloride 112 H 111 H Carbon Dioxide 21.0 20.5 L BUN 9 7 Creatinine 0.87 0.78 Calcium 8.7 8.5 Cardiac Enzymes 12/20/17 12/20/17 12/21/17 Range/Units 17:00 17:00 01:10 Total Creatine Kinase 90 (26-192) U/L Troponin I 0.02 0.02 0.03 (0.02-0.05) ng/mL 12/21/17 Range/Units 04:23 Total Creatine Kinase (26-192) U/L Troponin I Less than 0.02 L (0.02-0.05) ng/mL Liver Function 12/20/17 12/21/17 Range/Units 17:00 04:23 Total Bilirubin 0.4 0.7 (0.2-1.0) mg/dL AST 19 17 (15-37) U/L ALT 16 14 (10-53) U/L Alkaline Phosphatase 94 80 (45-117) U/L Albumin 3.6 3.4 (3.4-5.0) g/dL Urine 12/20/17 Range/Units 17:00 Urine Color Yellow (Yellw/Straw) Urine Clarity Hazy H (Clear) Urine pH 5.0 (5.0-8.5) Ur Specific [place] 1.019 (1.002-1.035) Urine Protein Negative (Neg-Trace) mg/dL Urine Glucose (UA) Negative (Negative) mg/dL <Melita Pratt - 12/21/17 11:47> - Imaging Impressions Chest X-Ray 12/20/17 16:48 CONCLUSION: No acute cardiopulmonary disease. Abdomen/Pelvis CT 12/20/17 16:49 CONCLUSION: 1. No obstruction or acute inflammatory changes are demonstrated. 2. Multiple cysts of the left ovary measuring up to 3.8 cm in size. Similar findings were seen on the prior studies. Low-grade cystic neoplasm would be in the differential. 3. Uterine fibroids are again noted. 4. 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 <Nkechi Marks R - 12/21/17 13:23> Impressions Chest X-Ray 12/20/17 16:48 CONCLUSION: No acute cardiopulmonary disease. Abdomen/Pelvis CT 12/20/17 16:49 CONCLUSION: 1. No obstruction or acute inflammatory changes are demonstrated. 2. Multiple cysts of the left ovary measuring up to 3.8 cm in size. Similar findings were seen on the prior studies. Low-grade cystic neoplasm would be in the differential. 3. Uterine fibroids are again noted. 4. 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 <SantaMelita - 12/21/17 11:47> Physical Exam Vital signs: Vital Signs 12/20/17 16:20 12/20/17 16:33 12/20/17 16:48 Temperature 98.5 F Pulse Rate 87 80 80 Respiratory Rate 16 20 18 Blood Pressure 188/107 H 172/98 H Pulse Oximetry 100 98 98 12/20/17 19:49 12/20/17 20:47 12/20/17 21:00 Temperature 98.2 F 98.5 F Pulse Rate 82 75 Respiratory Rate 18 18 Blood Pressure 168/98 H 149/81 H Pulse Oximetry 99 100 98 12/20/17 21:04 12/20/17 22:00 12/20/17 22:01 Temperature 98.3 F 98.2 F 98.2 F Pulse Rate 77 82 82 Respiratory Rate 17 20 20 Blood Pressure 156/89 H 168/70 H 168/82 H Pulse Oximetry 100 98 12/20/17 23:40 12/21/17 00:00 12/21/17 00:22 Temperature 98 F 98 F Pulse Rate 74 85 Respiratory Rate 20 20 Blood Pressure 155/90 H 155/90 H Pulse Oximetry 98 100 100 12/21/17 00:38 12/21/17 02:49 12/21/17 03:48 Temperature 98.6 F 98.1 F 98.1 F Pulse Rate 66 72 72 Respiratory Rate 18 18 18 Blood Pressure 149/75 H 159/86 H 159/86 H Pulse Oximetry 100 99 99 12/21/17 04:00 12/21/17 08:00 12/21/17 12:00 Temperature 98.1 F 98.1 F Pulse Rate 72 65 73 Respiratory Rate 18 20 Blood Pressure 126/68 174/92 H Pulse Oximetry 100 100 12/21/17 12:08 12/21/17 12:19 12/21/17 12:50 Temperature 97.8 F Pulse Rate 65 63 Respiratory Rate 20 20 Blood Pressure 140/93 H 141/84 H Pulse Oximetry 99 100 99 Intake & Output 12/20/17 12/21/17 12/21/17 18:59 06:59 18:59 Intake Total 400 / 400 200 / 200 Balance 400 / 400 200 / 200 Weight 82.554 kg 84.2 kg Intake: Oral 0 / 0 Anesthesia Amount 200 / 200 Intake (Blood Product) Amt 400 / 400 Rbc As-3 Leukoreduced Unit 400 / 400 [id number] Rbc As-3 Leukoreduced Unit 0 / 0 [id number] Other: # Voids 1 Date of Last Bowel Movement 12/20/17 12/21/17 Weight On Admission 84.2 kg <Nkechi Marks - 12/21/17 13:23> Vital Signs 12/20/17 16:20 12/20/17 16:33 12/20/17 16:48 Temperature 98.5 F Pulse Rate 87 80 80 Respiratory Rate 16 20 18 Blood Pressure 188/107 H 172/98 H Pulse Oximetry 100 98 98 12/20/17 19:49 12/20/17 20:47 12/20/17 21:00 Temperature 98.2 F 98.5 F Pulse Rate 82 75 Respiratory Rate 18 18 Blood Pressure 168/98 H 149/81 H Pulse Oximetry 99 100 98 12/20/17 21:04 12/20/17 22:00 12/20/17 22:01 Temperature 98.3 F 98.2 F 98.2 F Pulse Rate 77 82 82 Respiratory Rate 17 20 20 Blood Pressure 156/89 H 168/70 H 168/82 H Pulse Oximetry 100 98 12/20/17 23:40 12/21/17 00:00 12/21/17 00:22 Temperature 98 F 98 F Pulse Rate 74 85 Respiratory Rate 20 20 Blood Pressure 155/90 H 155/90 H Pulse Oximetry 98 100 100 12/21/17 00:38 12/21/17 02:49 12/21/17 03:48 Temperature 98.6 F 98.1 F 98.1 F Pulse Rate 66 72 72 Respiratory Rate 18 18 18 Blood Pressure 149/75 H 159/86 H 159/86 H Pulse Oximetry 100 99 99 12/21/17 04:00 12/21/17 08:00 Temperature 98.1 F Pulse Rate 72 65 Respiratory Rate 18 Blood Pressure 126/68 Pulse Oximetry 100 Intake & Output 12/20/17 12/21/17 12/21/17 18:59 06:59 18:59 Intake Total 400 / 400 Balance 400 / 400 Weight 82.554 kg 84.2 kg Intake: Oral 0 / 0 Intake (Blood Product) Amt 400 / 400 Rbc As-3 Leukoreduced Unit 400 / 400 [id number] Rbc As-3 Leukoreduced Unit 0 / 0 [id number] Other: # Voids 1 Date of Last Bowel Movement 12/20/17 12/21/17 Weight On Admission 84.2 kg <Melita Pratt - 12/21/17 11:47> Narrative: GENERAL: Well-nourished, well-developed patient. SKIN: Warm and dry. HEAD: Normocephalic and atraumatic. EYES: No scleral icterus. No injection or drainage. NECK: No JVD. CARDIOVASCULAR: Regular rate and rhythm without murmurs, gallops, or rubs. RESPIRATORY: Breath sounds equal bilaterally. No accessory muscle use. ABDOMEN/GI: Abdomen soft, non-tender, bowel sounds present, no rebound, no guarding EXTREMITIES: No cyanosis or edema. NEUROLOGICAL: Awake and alert. Motor and sensory grossly within normal limits. <Melita Pratt - 12/21/17 11:47> Assessment and Plan - Assessment (1) GI bleed Code(s): K92.2 - Gastrointestinal hemorrhage, unspecified Status: Suspected (2) Stool guaiac positive Code(s): R19.5 - Other fecal abnormalities Status: Acute (3) Symptomatic anemia Code(s): D64.9 - Anemia, unspecified Status: Acute (4) Atypical chest pain Code(s): R07.89 - Other chest pain Status: Acute (5) Nutrition, metabolism, and development symptoms Code(s): R63.8 - Other symptoms and signs concerning food and fluid intake Status: Acute (6) DVT prophylaxis Status: Acute <Nkechi Marks - 12/21/17 13:23> - Assessment and Plan Assessment & plan 42 yr old female with PMH of fibroids, heavy periods, pre-eclampsia, and a hx of low Hb (6.8) requiring 2 U pRBC in 2014, presenting to the ED with a 4 day history of excessive fatigue, sleepiness, and a two day history of chest pain and abdominal pain. Found to have a Hb of 6.9 in ED and received two units of pRBC. Positive stool guaiac. repeat H/H at 04:23 showed 8.6/29.2. Iron studies show microcytic anemia likely iron deficiency with elevated TIBC and low Iron, ferritin, and saturation. CT abdomen: No obstruction or acute inflammatory changes are demonstrated. 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 Anemia DDx include but not limited to: GI bleed v abnormal uterine bleeding v chronic anemia. - Hx of similar episode in 2014 (hb of 6.8, received 2 U of RBC) - H/H after 2 U pRBC 8.6/29.2 - Iron studies showed microcytic anemia with iron deficiency - Positive guaiac - Awaiting GI consult recommendation (NPO after midnight) - repeat H/H in the PM Stool Guaiac positive - Awaiting GI consult for further recommendations for inpatient vs outpatient scoping. Chest pain DDx include but not limited to: symptomatic anemia v ACS v PE v acid reflux v HTN - symptomatically resolving since admission per patient report - Chest XR negative for cardiopulmonary disease - EKG x2 within normal limits - Troponin x2 negative. - Pantoprazole 40mg IV q12hr - Vasotec 1.25mg Inj IV q6 PRN Abdominal pain DDx include but not limited to: fibroids v AUB v menstrual cramps v GI bleed vs symptomatic angiomyolipoma - Symptomatically resolving since admission per patient report. - CT abdomen: No obstruction or acute inflammatory changes are demonstrated. 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 - Recommendations for followup include patient education on signs/symptoms of rupture and prevention of risky behavior such as contact sports/flank trauma. At this time she appears to be asymptomatic as her pain to very local to suprapubic region and not flank in nature, without hematuria or renal dysfunction. With one angiomyolipoma measuring greater than 4cm other recommendations include screening for tuberous sclerosis. Screening entails detailed history and physical. She appears to have no other clinical findings that support further genetic testing or concern for tuberous sclerosis. - No further workup indicated, will advise patient on return precautions for signs/symptoms of rupture. FEN - Received 250ml NS on ED - NPO, plan for regular diet if no GI procedure today (pending consult) - Encourage PO hydration - DVT prophylaxis: SCD, pharmacotherapy contraindicated, pt with possible acute bleed. Patient seen and discussed with Medicine team include Dr. Randolph, Dr. Alas , Dr. Katz, and Dr. Marks Signed Melita Santa, MS4 <Melita Pratt - 12/21/17 11:47> - Attending Attestation Agree with assessment and plan as above documented by the medical student. Please see full History and admission information from the resident H&P from 12/20/17. Overnight the patient is feeling a little better. A little less fatigued. No chest pain anymore. Some abdominal pain in the lower abd. Denies vomiting, some nausea. No bleeding noted. GENERAL: alert and oriented times 3 SKIN: Warm and dry. HEAD: Normocephalic. EYES: No scleral icterus. No injection or drainage. NECK: Supple, trachea midline. No JVD or lymphadenopathy. CARDIOVASCULAR: Regular rate and rhythm without murmurs, gallops, or rubs. RESPIRATORY: Breath sounds equal bilaterally. No accessory muscle use. GASTROINTESTINAL: Abdomen soft, slightly tender in the suprapubic area, nondistended. MUSCULOSKELETAL: No cyanosis, or edema. BACK: Nontender without obvious deformity. No CVA tenderness. AP: 1. Anemia with Hemoccult positive stools -- EGD done today. No source of bleeding. Possible catracho esophagitis -- biopsies pending. Per GI will plan for colonoscopy in the am. This may just be a chronic anemia likely of [employer] source but I agree that it warrants a full investigation. Due to possible catracho esophagitis will check HIV. Monitor H/H for stability. Transfuse if needed. 2. CP resolved - likely due to anemia. 3. Abd pain -- unclear at this time the etiology -- could be due to uterine fibroid. CT abd no revealing for a source of this -- will monitor for now with supportive care aimed at symptom relief. <Nkechi Marks - 12/21/17 13:23>
[2017-12-21] MEDS ORDERED: Lidocaine PF 1% Inj 5 ML Syringe OTHER ONE (11:46)
--- NOTE | 2017-12-21 11:51 | ECG ---
Date Performed: 12/21/2017 Time Performed: 01:20:47 PTAGE: 42 years EKG: Sinus rhythm MODERATE T-WAVE ABNORMALITY, CONSIDER ANTERIOR ISCHEMIA ABNORMAL ECG PREVIOUS TRACING 12/20/17 16.56 Since the previous tracing, no significant change noted DOCTOR: Beck Zazueta Interpretating Date/Time 12/21/2017 11:49:55
--- NOTE | 2017-12-21 12:08 | P.PCN ---
Date of procedure: 12/21/17 Pre-op diagnosis: Anemia, guaiac positive stools Procedure: PROCEDURE PERFORMED EGD with biopsies PROCEDURE: The procedure, risks and benefits were discussed with Patient/POA and informed consent was obtained. Anesthesia sedated Patient with Diprivan. Patient was placed in the left lateral decubitus position. EGD: The Pentax videoscope was introduced through the oropharynx and advanced to the second portion of the duodenum under direct visualization. Retroflexion was performed in the stomach. 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
[2017-12-21] MEDS ORDERED: Magnesium Citrate Liq 300 ML Bottle PO ONE ×2 (12:11→18:30)
[2017-12-21] MEDS ORDERED: Metoprolol Tartrate 25 MG Tablet PO ONE (12:30)
[2017-12-21] MEDS ORDERED: Chlorhexidine Gluconate 2% 1 Pack (2 Cloths) TOPICAL ONE (12:30)
[2017-12-21] MEDS ORDERED: Sodium Chlor 0.9% Inj 500 ML IV.CONT ONE (12:30)
[2017-12-21] MEDS: Ferrous Sulfate 325 MG Tablet PO SCH (13:11)
--- NOTE | 2017-12-21 16:22 | ECG ---
Date Performed: 12/20/2017 Time Performed: 16:56:25 PTAGE: 42 years EKG: Sinus rhythm MODERATE T-WAVE ABNORMALITY, CONSIDER ANTERIOR ISCHEMIA When compared to previous tracing, anterior T wave changes are New, suggesting ischemia. ABNORMAL ECG PREVIOUS TRACING : 04/22/2008 01.12 DOCTOR: Beck Zazueta Interpretating Date/Time 12/21/2017 16:20:54
--- NOTE | 2017-12-21 16:26 | ECG ---
Date Performed: 12/21/2017 Time Performed: 05:50:14 PTAGE: 42 years EKG: Sinus rhythm Anteroseptal T wave changes may be due to myocardial ischemia When compared to previous tracing, ant erior T wave changes Have resolved and the QRS has also widened. Clinical correlation is recommended Abnormal ECG PREVIOUS TRACING : 12/21/2017 01.20.47 DOCTOR: Beck Zazueta Interpretating Date/Time 12/21/2017 16:24:44
[2017-12-21 17:05] LABS: Hematocrit 31.5 % (35.0-46.0); Hemoglobin 9.1 gm/dL (11.6-15.3)
[2017-12-22] MEDS ORDERED: Magnesium Citrate Liq 300 ML Bottle PO ONE (06:00)
[2017-12-22 08:04] LABS: Hematocrit 30.6 % (35.0-46.0); Hemoglobin 8.9 gm/dL (11.6-15.3); Mean Corpuscular Hemoglobin 17.9 pg (27.0-34.0); Mean Corpuscular Volume 61.7 fL (80.0-100.0); Mean Platelet Volume 8.9 fL (7.0-11.0); Platelet Count 181 th/mm3 (150-450); Red Blood Count 4.97 mil/mm3 (4.00-5.30); Red Cell Distribution Width 24.8 % (11.6-17.2); White Blood Count 7.1 th/mm3 (4.0-11.0)
[2017-12-22 08:08] LABS: Mean Corpuscular HGB Conc 29.1 % (32.0-36.0)
[2017-12-22] MEDS: Ferrous Sulfate 325 MG Tablet PO SCH (08:22)
[2017-12-22] MEDS: Pantoprazole Inj 40 MG Vial IV.PUSH SCH ×2 (08:26→20:42)
--- NOTE | 2017-12-22 10:41 | P.PNFP ---
Subjective Interval history: Patient was seen and evaluated this morning. She feels well overall. Patient denies chest and abdominal pain, heart palpitations, shortness of breath , nausea/vomiting, diarrhea and constipation. Patient is scheduled for a colonoscopy today. All questions were answered. <DeepthiHubertFreda - 12/22/17 10:41> Results - Labs Result diagrams: 12/23/17 06:50 12/21/17 04:23 <KaranfaithNkechi R - 12/23/17 11:24> Abnormal lab results 12/23/17 Range/Units 06:50 WBC 13.9 H D (4.0-11.0) th/mm3 Hgb 8.4 L (11.6-15.3) gm/dL Hct 29.4 L (35.0-46.0) % MCV 62.1 L (80.0-100.0) fL MCH 17.8 L (27.0-34.0) pg MCHC 28.7 L (32.0-36.0) % RDW 25.0 H (11.6-17.2) % Short CBC 12/23/17 Range/Units 06:50 WBC 13.9 H D (4.0-11.0) th/mm3 Hgb 8.4 L (11.6-15.3) gm/dL Hct 29.4 L (35.0-46.0) % Plt Count 202 (150-450) th/mm3 <Nkechi Marks R - 12/23/17 11:24> Abnormal lab results 12/21/17 12/22/17 Range/Units 16:39 07:04 Hgb 9.1 L 8.9 L (11.6-15.3) gm/dL Hct 31.5 L 30.6 L (35.0-46.0) % MCV 61.7 L (80.0-100.0) fL MCH 17.9 L (27.0-34.0) pg MCHC 29.1 L (32.0-36.0) % RDW 24.8 H (11.6-17.2) % Short CBC 12/21/17 12/22/17 Range/Units 16:39 07:04 WBC 7.1 (4.0-11.0) th/mm3 Hgb 9.1 L 8.9 L (11.6-15.3) gm/dL Hct 31.5 L 30.6 L (35.0-46.0) % Plt Count 181 (150-450) th/mm3 <Freda Lacey - 12/22/17 10:41> Physical Exam Vital signs: Vital Signs 12/22/17 12:00 12/22/17 16:00 12/22/17 20:00 Temperature 98.3 F 98.7 F 100.0 F H Pulse Rate 70 70 94 H Respiratory Rate 18 18 18 Blood Pressure 167/89 H 167/98 H 159/82 H Pulse Oximetry 100 100 100 12/23/17 00:00 12/23/17 04:00 12/23/17 06:51 Temperature 100.0 F H 99.4 F Pulse Rate 95 H 91 H 74 Respiratory Rate 18 17 Blood Pressure 144/67 H 126/66 Pulse Oximetry 100 99 12/23/17 07:14 12/23/17 08:00 Temperature 99.8 F H Pulse Rate 74 90 Respiratory Rate 18 Blood Pressure 142/68 H Pulse Oximetry 100 Intake & Output 12/22/17 12/23/17 12/23/17 18:59 06:59 18:59 Intake Total 950 / 950 Balance 950 / 950 Weight 83.9 kg Intake: Oral 800 / 800 Anesthesia Amount 150 / 150 Other: # Voids 3 7 Date of Last Bowel Movement 12/22/17 12/23/17 # Bowel Movements 1 <Nkechi Marks - 12/23/17 11:24> Vital Signs 12/21/17 12:00 12/21/17 12:08 12/21/17 12:19 Temperature 98.1 F 97.8 F Pulse Rate 73 65 63 Respiratory Rate 20 20 20 Blood Pressure 174/92 H 140/93 H 141/84 H Pulse Oximetry 100 99 100 12/21/17 12:50 12/21/17 16:00 12/21/17 18:13 Temperature 98.1 F Pulse Rate Respiratory Rate 20 Blood Pressure 174/100 H 148/86 H Pulse Oximetry 99 100 12/21/17 20:00 12/22/17 00:00 12/22/17 04:00 Temperature 98.1 F 98.0 F Pulse Rate 74 60 71 Respiratory Rate 18 18 Blood Pressure 164/88 H 135/82 Pulse Oximetry 100 100 12/22/17 08:00 12/22/17 08:32 Temperature 97.9 F Pulse Rate 68 68 Respiratory Rate 18 Blood Pressure 139/85 Pulse Oximetry 98 <Freda Lacey - 12/22/17 10:41> Narrative: GENERAL: Well-nourished, well-developed patient. SKIN: Warm and dry. HEAD: Normocephalic and atraumatic. EYES: No scleral icterus. No injection or drainage. NECK: No visible JVD. CARDIOVASCULAR: Regular rate and rhythm without murmurs, gallops, or rubs. RESPIRATORY: Breath sounds equal bilaterally. No accessory muscle use. ABDOMEN/GI: Normal bowel sounds. Abdomen soft, non-tender, no rebound, no guarding. EXTREMITIES: No cyanosis or edema. NEUROLOGICAL: Awake and alert. Motor and sensory grossly within normal limits. <Freda Lacey - 12/22/17 10:41> Assessment and Plan - Assessment (1) GI bleed Code(s): K92.2 - Gastrointestinal hemorrhage, unspecified Status: Suspected (2) Stool guaiac positive Code(s): R19.5 - Other fecal abnormalities Status: Acute (3) Symptomatic anemia Code(s): D64.9 - Anemia, unspecified Status: Acute (4) Atypical chest pain Code(s): R07.89 - Other chest pain Status: Resolved (5) Nutrition, metabolism, and development symptoms Code(s): R63.8 - Other symptoms and signs concerning food and fluid intake Status: Acute <Nkechi Marks - 12/23/17 11:24> (1) GI bleed Code(s): K92.2 - Gastrointestinal hemorrhage, unspecified Status: Suspected (2) Stool guaiac positive Code(s): R19.5 - Other fecal abnormalities Status: Acute (3) Symptomatic anemia Code(s): D64.9 - Anemia, unspecified Status: Acute (4) Atypical chest pain Code(s): R07.89 - Other chest pain Status: Resolved (5) Nutrition, metabolism, and development symptoms Code(s): R63.8 - Other symptoms and signs concerning food and fluid intake Status: Acute <Freda Lacey - 12/22/17 10:22> - Assessment and Plan Patient is a 42 year old female presenting to the ED with a 4 day history of excessive fatigue, sleepiness, and a two day history of chest and abdominal pain. The patient was found to have a Hgb of 6.9 in the ED and received two units of pRBC. Positive stool guaiac. Iron studies with elevated TIBC and low iron, ferritin, and %saturation. Patient admitted for further evaluation. Chest and abdominal pain resolved. GI consulted for possible bleed. Anemia: * History of similar episode in 2014 (hgb of 6.8, received 2 U of RBC). * H/H after 2 U pRBC 8.6/29.2. * Hgb stable at 8.9. * Iron studies with elevated TIBC and low iron, ferritin, and %saturation. * HIV nonreactive. * Positive stool guaiac. * Ferrous sulfate 325 mg PO daily. * GI consulted: * EGD 12/21: Possible Geovanna esophagitis; Otherwise unremarkable EGD. * Colonoscopy scheduled for 12/22. Chest pain - resolved: * Chest XR negative for cardiopulmonary disease. * EKG x3 wnl. * Troponin x4 less than or equal to 0.03. * Pantoprazole 40mg IV q12hr. Abdominal pain -resolved: * CT abdomen: No obstruction or acute inflammatory changes are demonstrated. 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 * Recommendations for follow-up include patient education on signs/symptoms of kidney rupture and prevention of risky behavior such as contact sports/flank trauma. At this time she appears to be asymptomatic as her pain is localized to the suprapubic region and not flank in nature, without hematuria or renal dysfunction. With one angiomyolipoma measuring greater than 4cm other recommendations include screening for tuberous sclerosis. Screening entails detailed history and physical. She appears to have no other clinical findings that support further genetic testing or concern for tuberous sclerosis. FEN: Fluid: * Tolerating PO. Electrolytes: * Monitor and replete as necessary. Nutrition: * NPO after midnight; diet per GI following procedure. DVT prophylaxis: * SCDs. * Pharmacotherapy contraindicated, pt with possible acute bleed. <Labell,Freda - 10/06/18 10:41> - Attending Attestation Patient seen and examined. Agree with assessment and plan as above <Nkechi Marks - 12/23/17 11:24>
[2017-12-22] MEDS ORDERED: Lidocaine PF 1% Inj 5 ML Syringe OTHER ONE (14:03)
--- NOTE | 2017-12-22 14:18 | GIPROC ---
[facility] [address] [facility]. [facility], [address] COLONOSCOPY PROCEDURE REPORT EXAM DATE: 12/22/2017 PATIENT NAME: Hilda Shine MR #: [id number] BIRTHDATE: 1975 ENDOSCOPIST: Aditya Mays MD ORDER #: [id number] [facility]: Darius Brown and Michaela Kelley STATUS: inpatient INDICATIONS: The patient is a 42 yr old female here for a colonoscopy due to iron deficiency anemia PROCEDURE PERFORMED: Colonoscopy, diagnostic MEDICATIONS: None and Per Anesthesia. PREP QUALITY: The [place] Bowel Prep Score was Right colon 3, Mid colon 2, and Left colon 3. Total = 8. ESTIMATED BLOOD LOSS: None CONSENT: The patient understands the risks and benefits of the procedure and understands that these risks include, but are not limited to: sedation, allergic reaction, infection, perforation and/or bleeding. Alternative means of evaluation and treatment include, among others: physical exam, x-rays, and/or surgical intervention. The patient elects to proceed with this endoscopic procedure. medical equipment was checked for proper function. Hand hygiene and appropriate measures for infection prevention was taken. After the risks, benefits and alternatives of the procedure were thoroughly explained, Informed consent was verified, confirmed and timeout was successfully executed by the treatment team. A digital exam revealed external hemorrhoids The Pentax [id number] endoscope was introduced through the anus and advanced to the cecum, which was identified by both the appendix and ileocecal valve. The instrument was then slowly withdrawn as the colon was fully examined. COLON FINDINGS: Mild diverticulosis was noted in the sigmoid colon. No bleeding was noted from the diverticulosis. Retroflexed views revealed internal hemorrhoids and Retroflexed views revealed medium internal hemorrhoids The scope was then completely withdrawn from the patient and the procedure terminated. ADVERSE EVENTS: There were no complications. IMPRESSIONS: 1. Mild diverticulosis was noted in the sigmoid colon 2. Retroflexed views revealed internal hemorrhoids 3. Retroflexed views revealed medium internal hemorrhoids 4. Revealed external hemorrhoids RECOMMENDATIONS: 1. Benefiber 2 tsp daily 2. Continue surveillance 3. Yearly hemoccult 4. Xray for Small bowel follow through RECALL: Return 10 years Colonoscopy Aditya Mays MD eSigned: Aditya Mays MD 12/22/2017 2:18 PM cc: PATIENT NAME: Hilda Shine MR#: [id number]
[2017-12-22] MEDS ORDERED: Magnesium Citrate Liq 300 ML Bottle PO SCH (20:00)
[2017-12-22] MEDS: Acetaminophen 325 MG Tablet PO PRN (20:43)
[2017-12-23] MEDS: Pantoprazole Inj 40 MG Vial IV.PUSH SCH (08:01)
[2017-12-23] MEDS: Ferrous Sulfate 325 MG Tablet PO SCH (08:01)
[2017-12-23 08:22] VITALS: RESP 18; TEMP 99.8; O2SAT 100
[2017-12-23 08:29] LABS: Hematocrit 29.4 % (35.0-46.0); Hemoglobin 8.4 gm/dL (11.6-15.3); Mean Corpuscular Hemoglobin 17.8 pg (27.0-34.0); Mean Corpuscular Volume 62.1 fL (80.0-100.0); Mean Platelet Volume 9.3 fL (7.0-11.0); Platelet Count 202 th/mm3 (150-450); Red Blood Count 4.73 mil/mm3 (4.00-5.30); White Blood Count 13.9 th/mm3 (4.0-11.0)
[2017-12-23 08:35] LABS: Mean Corpuscular HGB Conc 28.7 % (32.0-36.0)
--- NOTE | 2017-12-23 11:25 | FL ---
EXAM DATE: 12/23/2017 12:00 AM EDT AGE/SEX: 42 years / Female INDICATIONS: Anemia and blood in stool. CLINICAL DATA: This is the patient's initial encounter. Patient reports that signs and symptoms have been present for 3 days and indicates a pain score of 0/10. MEDICAL/SURGICAL HISTORY: None. None. COMPARISON: CT examination from 01/09/2018. FLUORO TIME: 2.4 minutes. IMAGE COUNT: 36 FINDINGS: Preliminary film is unremarkable. Examination of the swallowing function demonstrates no evidence of aspiration or penetration. The alicia dy of the esophagus is unremarkable. No reflux or hiatal hernia is identified. Examination of the stomach demonstrates no evidence of intraluminal mass or extrinsic compression. T he gastric volume appears normal and there are no findings of ulceration. The mucosal pattern appear s normal. The duodenal bulb and sweep appear normal. The visualized small bowel is unremarkable. CONCLUSION: Negative upper GI and small bowel follow-through. Electronically signed by: Marquis Silverio MD 12/23/2017 11:24 AM EDT
[2017-12-23] MEDS: Acetaminophen 325 MG Tablet PO PRN (11:37)
[2017-12-23 12:02] VITALS: BP 152/88; PULSE 87
--- NOTE | 2017-12-23 12:48 | P.PN ---
Subjective Interval history: Pt seen and examined this morning after GI fluoroscopy exam. Pt complaining of headache, sinus pressure, sore throat, and cough. Apparently she has been having cough and note feeling well for the past 2 days but had not mentioned to physicians. States today is actually better, she believes she got sick from her daughter who is sick and on antibiotics for an URI, and has been coming to see her at the hospital. She denies fevers, but has had intermittent chills. No N/ V. Physical Exam Vital signs: Vital Signs 12/22/17 16:00 12/22/17 20:00 12/23/17 00:00 Temperature 98.7 F 100.0 F H 100.0 F H Pulse Rate 70 94 H 95 H Respiratory Rate 18 18 18 Blood Pressure 167/98 H 159/82 H 144/67 H Pulse Oximetry 100 100 100 12/23/17 04:00 12/23/17 06:51 12/23/17 07:14 Temperature 99.4 F Pulse Rate 91 H 74 74 Respiratory Rate 17 Blood Pressure 126/66 Pulse Oximetry 99 12/23/17 08:00 12/23/17 12:00 12/23/17 12:07 Temperature 99.8 F H 99.8 F H Pulse Rate 90 87 Respiratory Rate 18 18 18 Blood Pressure 142/68 H 152/88 H Pulse Oximetry 100 100 Intake & Output 12/22/17 12/23/17 12/23/17 18:59 06:59 18:59 Intake Total 950 / 950 Balance 950 / 950 Weight 83.9 kg Intake: Oral 800 / 800 Anesthesia Amount 150 / 150 Other: # Voids 3 7 Date of Last Bowel Movement 12/22/17 12/23/17 # Bowel Movements 1 Narrative: GENERAL: Well-nourished, well-developed patient. SKIN: Warm and dry. HEAD: Normocephalic and atraumatic. Congested, sinuses not tender to palpation but feel "full" EYES: No scleral icterus. No injection or drainage. THROAT: No erythema, no exudates, no inflammation of tonsils. Mild aphonia. CARDIOVASCULAR: Regular rate and rhythm without murmurs, gallops, or rubs. RESPIRATORY: Breath sounds equal bilaterally. No accessory muscle use. ABDOMEN/GI: Normal bowel sounds. Abdomen soft, non-tender, no rebound, no guarding. EXTREMITIES: No cyanosis or edema. NEUROLOGICAL: Awake and alert. Motor and sensory grossly within normal limits. Results - Labs CBC & Chem 7: 12/23/17 06:50 12/21/17 04:23 Laboratory Results - last 24 hr 12/23/17 06:50 WBC 13.9 H D RBC 4.73 Hgb 8.4 L Hct 29.4 L MCV 62.1 L MCH 17.8 L MCHC 28.7 L RDW 25.0 H Plt Count 202 MPV 9.3 - Imaging Impressions Upper GI and Small Bowel X-Ray 12/23/17 00:00 CONCLUSION: Negative upper GI and small bowel follow-through. Assessment and Plan - Assessment (1) Stool guaiac positive Code(s): R19.5 - Other fecal abnormalities Status: Acute (2) Nutrition, metabolism, and development symptoms Code(s): R63.8 - Other symptoms and signs concerning food and fluid intake Status: Acute - Plan Patient is a 42 year old female presenting to the ED with a 4 day history of excessive fatigue, sleepiness, and a two day history of chest and abdominal pain. The patient was found to have a Hgb of 6.9 in the ED and received two units of pRBC. Positive stool guaiac. Iron studies with elevated TIBC and low iron, ferritin, and %saturation. Patient admitted for further evaluation. Chest and abdominal pain resolved. GI consulted for possible bleed. EGD, Colonoscopy, and GI follow through negative for acute bleed. Pt's anemia might be likely from a chronic abnormal uterine bleeding. Acute Gi bleed has been ruled out. Pt will be discharged home today on a stable condition with instructions to establish care with a PCP. Anemia: * History of similar episode in 2015 (hgb of 6.8, received 2 U of RBC). * H/H after 2 U pRBC 8.6/29.2. * Hgb stable at 8.4 * Iron studies with elevated TIBC and low iron, ferritin, and %saturation. * HIV nonreactive. * Positive stool guaiac. * Ferrous sulfate 325 mg PO daily. * GI consulted: * EGD 12/21: Possible Geovanna esophagitis; Otherwise unremarkable EGD. * Colonoscopy 12/22: mild diverticulosis in sigmoid colon without bleeding. Internal hemorrhoids. * GI and small bowel X-ray: Negative upper GI and small bowel follow-through * Acute GI bleed ruled out URI vs Sinusitis * Pt's daughter with URI and on antibiotics * Pt's symptoms started on day 2 of hospitalization. We do not believe this is a hospital acquire infection, but rather an URI likely contracted from her daughter. Pt stable, afebrile. WBC slightly elevated at 13.9 * Take Amoxicillin 1 g every 8 hours for 5 days. Prescription provided. - Attending Attestation The exam, history, and the medical decision-making described in the above note were completed with the assistance of the resident physician. I reviewed and agree with the findings presented. I attest that I had a [id number] encounter with the patient on the same day, and personally performed and documented my assessment and findings in the medical record.
== END 2017-12-23 16:00 | disposition home or self-care (01) ==
LOC: NEPC 16:03 → NEDA 16:03 → N06 23:11
PROVIDERS: ADMIT Family Medicine; ATTEND Family Medicine
PROC: PANENDO (2017-12-21 11:46)
PROC: COLONOS (2017-12-22 14:02)